=== PATIENT | male | born 1940 | race Caucasian/White ===

== ENCOUNTER 2016-07-02 10:21 | Emergency (ER) | payer BC ==
[~2016-07-02] VITALS: Ht 182.9 cm; Wt 93.0 kg
[2016-07-02 10:21] VITALS: BP 155/82; PULSE 86; RESP 22; TEMP 97.6; O2SAT 100
[~2016-07-02 10:21] MED LIST: CITA10TA71 PO; GLIP-195 PO; LOVA40TA75 PO; MEMA28CA PO; RANI150T8 PO; TAMS-11 PO
--- NOTE | 2016-07-02 10:21 | NUR ---
Placed in room 02. Placed on heavy equipment operator, blood pressure machine and pulse oximeter. To gown for exam. Side rails up. Report given to MYNOR Campos.
--- NOTE | 2016-07-02 10:21 | NUR ---
Pt report received from MYNOR Bautista. Pt c/o Left sided chest pain, non radiating since this AM. Pt states that he was laying down when C/P onset. Pt also c/o nausea.
[2016-07-02] MEDS ORDERED: ASPIRIN 325 MG TABLET PO ONE ×2 (10:30)
[2016-07-02] MEDS ORDERED: ONDANSETRON HCL 4 MG/2 ML VIAL IVP ONE (10:30)
[2016-07-02] MEDS ORDERED: MORPHINE SULFATE 10 MG/ML VIAL IVP ONE (10:30)
[2016-07-02] MEDS ORDERED: NITROGLYCERIN 0.4 MG TAB.SUBL SL ONE ×2 (10:30)
--- NOTE | 2016-07-02 10:44 | NUR ---
ER at bedside examining patient.
[2016-07-02 10:56] LABS: BASOPHILS # (AUTO) 0.1 K/uL (0.0-0.2); BASOPHILS % (AUTO) 1.4 % (0.0-2.0); EOSINOPHILS # (AUTO) 0.2 K/uL (0.0-0.4); EOSINOPHILS % (AUTO) 3.8 % (0.0-4.0); HEMATOCRIT 43.5 % (36-54); HEMOGLOBIN 14.4 g/dL (14.0-18.0); LYMPHOCYTES # (AUTO) 2.3 K/uL (1.0-5.5); LYMPHOCYTES % (AUTO) 38.9 % (20.5-51.5); MEAN CORPUSCULAR HEMOGLOBIN 30 pg (27-31); MEAN CORPUSCULAR HGB CONC 33 % (32-36); MEAN CORPUSCULAR VOLUME 92 fL (79.0-98.0); MONOCYTES # (AUTO) 0.4 K/uL (0.0-1.0); MONOCYTES % (AUTO) 6.2 % (1.7-9.3); NEUTROPHILS % (AUTO) 49.7 % (40.0-70.0); PLATELET COUNT (AUTO) 212 K/uL (130-430); RED BLOOD CELL COUNT(AUTO) 4.76 MIL/uL (4.2-6.2); RED CELL DISTRIBUTION WIDTH 12.6 % (9.0-15.0)
[2016-07-02 11:01] LABS: PROTHROMBIN TIME 11.1 SECS (9.5-12.5)
--- NOTE | 2016-07-02 11:08 | NUR ---
Lab at bedside to recollect blood s/p hemolyzation.
--- NOTE | 2016-07-02 11:09 | NUR ---
Pt states that he is pain free. VSS. No needs verbalized at this time.
[2016-07-02 11:24] LABS: ANION GAP 9 (5-15); CALCIUM 8.9 mg/dL (8.4-11.0); CHLORIDE 106 mmol/L (98-107); CREATININE 1.81 mg/dL (0.55-1.30); GLUCOSE 256 mg/dL (70-99); POTASSIUM 3.9 mmol/L (3.5-5.1); SODIUM SERUM 140 mmol/L (136-145); UREA NITROGEN, BLOOD 11 mg/dL (8-21)
[2016-07-02 11:37] LABS: ALANINE AMINOTRANSFERASE 29 U/L (12-78); ALBUMIN 3.6 g/dL (3.4-4.8); ASPARTATE AMINOTRANSFERASE 18 U/L (10-37); CREATINE KINASE MB 1.1 ng/mL (0-3.6); LIPASE 167 U/L (73-393); TOTAL BILIRUBIN 0.6 mg/dL (0.0-1.0); TOTAL PROTEIN, SERUM 6.6 g/dL (6.4-8.3)
[2016-07-02] MEDS ORDERED: NACL 0.9% 1,000 ML IV ONE (12:00)
--- NOTE | 2016-07-02 12:16 | NUR ---
Pt states "I feel fine. I want to go home." Dr. Bolanos notified of pt.'s request.
--- NOTE | 2016-07-02 13:34 | NUR ---
Patient does not wish to proceed with medical care recommended by DR CANTRELL. Patient given information related to possible complications, up to and including , which could occur as a result of leaving hospital at this time. Patient verbalizes understanding of risks involved leaving against medical advice. Patient has signed AMA form.
[2016-07-02 13:36] VITALS: BP 139/76; PULSE 86; RESP 15; TEMP 97.6; O2SAT 100
== END 2016-07-02 13:35 | disposition left against medical advice (07) ==
LOC: SED 10:21
DX: N17.9 Acute kidney failure, unspecified (principal); R07.2 Precordial pain; E11.9 Type 2 diabetes mellitus without complications; Z53.20 Procedure and treatment not carried out because of patient's decision for unspecified reasons
CPT/HCPCS: 36415; 71010; 80053; 82553; 83690; 84484; 85025; 85610; 85730; 93005; 96361; 96374; 99285; J2405; J7030

== ENCOUNTER 2018-04-05 09:55 | Emergency (ER) | payer BC ==
[~2018-04-05] VITALS: Ht 182.9 cm; Wt 90.7 kg
[~2018-04-05 09:55] MED LIST changes: +CITA10TA17 PO; -CITA10TA71 PO; -GLIP-195 PO; +GLIP-212 PO
[2018-04-05 10:11] VITALS: BP_SYST 142
[2018-04-05 11:50] VITALS: BP_SYST 114
== END 2018-04-05 11:50 | disposition home or self-care (01) ==
LOC: SED 09:55
DX: R33.9 Retention of urine, unspecified (principal); R03.0 Elevated blood-pressure reading, without diagnosis of hypertension; E11.9 Type 2 diabetes mellitus without complications; N40.0 Benign prostatic hyperplasia without lower urinary tract symptoms; Z79.899 Other long term (current) drug therapy
CPT/HCPCS: 99284

== ENCOUNTER 2018-04-05 18:45 | Emergency (ER) | payer BC ==
[~2018-04-05] VITALS: Ht 182.9 cm; Wt 90.7 kg
[2018-04-05 19:27] VITALS: BP_SYST 111
[2018-04-05] MEDS ORDERED: NACL 0.9% 1,000 ML IV ONE (20:45)
[2018-04-05 21:00] LABS: BASOPHILS % (AUTO) 0.6 % (0.0-2.0); EOSINOPHILS % (AUTO) 0.6 % (0.0-4.0); HEMOGLOBIN 12.5 g/dL (14.0-18.0); LYMPHOCYTES # (AUTO) 2.1 K/uL (1.0-5.5); LYMPHOCYTES % (AUTO) 26.3 % (20.5-51.5); MEAN CORPUSCULAR HEMOGLOBIN 30 pg (27-31); MEAN CORPUSCULAR HGB CONC 33 % (32-36); MEAN CORPUSCULAR VOLUME 90 fL (79.0-98.0); MONOCYTES % (AUTO) 12.2 % (1.7-9.3); NEUTROPHILS # (AUTO) 4.8 K/uL (1.8-7.7); NEUTROPHILS % (AUTO) 60.3 % (40.0-70.0); PLATELET COUNT (AUTO) 258 K/uL (130-430); RED BLOOD CELL COUNT(AUTO) 4.24 MIL/uL (4.2-6.2); RED CELL DISTRIBUTION WIDTH 13.3 % (9.0-15.0); WHITE BLOOD COUNT (AUTO) 7.9 K/uL (4.8-10.8)
[2018-04-05 21:14] LABS: BILIRUBIN,URINE NEGATIVE (NEGATIVE); BLOOD, URINE 3+ (NEGATIVE); CLARITY/URINE CLOUDY (CLEAR); COLOR,URINE YELLOW (YELLOW); GLUCOSE,URINE NEGATIVE (NEGATIVE); KETONES,URINE NEGATIVE (NEGATIVE); LEUKOCYTE ESTERASE ,URINE NEGATIVE (NEGATIVE); NITRITE, URINE NEGATIVE (NEGATIVE); PH,URINE 5.5 (5.0-8.0); PROTEIN URINE 2+ (NEGATIVE); UROBILINOGEN,URINE 0.2 (0.2-1.0)
[2018-04-05 21:22] LABS: ALANINE AMINOTRANSFERASE 32 U/L (12-78); ANION GAP 7 (5-15); ASPARTATE AMINOTRANSFERASE 24 U/L (10-37); CALCIUM 9.1 mg/dL (8.4-11.0); CHLORIDE 99 mmol/L (98-107); GLUCOSE 145 mg/dL (70-99); POTASSIUM 3.8 mmol/L (3.5-5.1); SODIUM SERUM 130 mmol/L (136-145); TOTAL BILIRUBIN 0.8 mg/dL (0.0-1.0); UREA NITROGEN, BLOOD 18 mg/dL (8-21)
[2018-04-05 21:24] LABS: RBC,URINE >100 /HPF (0-3); WBC,URINE 0-3 /HPF (0-3)
[2018-04-05 21:25] LABS: BACTERIA,URINE FEW /HPF (None Seen); FINE GRANULAR CASTS,URINE 0-10 /LPF (None Seen); MUCUS,URINE None Seen /LPF (None Seen)
[2018-04-05 22:36] VITALS: BP_SYST 124
== END 2018-04-05 22:36 | disposition home or self-care (01) ==
LOC: SED 18:45
DX: R33.9 Retention of urine, unspecified (principal); K59.00 Constipation, unspecified; R31.9 Hematuria, unspecified; E87.1 Hypo-osmolality and hyponatremia; F03.90 Unspecified dementia, unspecified severity, without behavioral disturbance, psychotic disturbance, mood disturbance, and anxiety; N40.0 Benign prostatic hyperplasia without lower urinary tract symptoms; E11.9 Type 2 diabetes mellitus without complications; Z79.899 Other long term (current) drug therapy
CPT/HCPCS: 36415; 74176; 80053; 81000; 83605; 85025; 87040; 87086; 93005; 99284; J7030

== ENCOUNTER 2018-04-12 10:10 | Emergency (ER) | payer BC ==
[~2018-04-12] VITALS: Ht 182.9 cm; Wt 90.7 kg
[~2018-04-12 10:10] MED LIST changes: -CITA10TA17 PO; -GLIP-212 PO; -RANI150T8 PO
[2018-04-12] MEDS ORDERED: NACL 0.9% 1,000 ML IV ONE ×3 (10:23→14:15)
[2018-04-12 10:25] VITALS: BP_SYST 102
[2018-04-12] MEDS ORDERED: KETOROLAC TROMETHAMINE 30 MG VIAL IVP ONE (10:30)
[2018-04-12] MEDS ORDERED: ASPIRIN 81 MG TAB.CHEW PO ONE (10:30)
[2018-04-12] MEDS ORDERED: ONDANSETRON HCL 4 MG/2 ML VIAL IVP ONE (10:45)
[2018-04-12 11:34] LABS: BASOPHILS % (AUTO) 0.2 % (0.0-2.0); EOSINOPHILS % (AUTO) 0.1 % (0.0-4.0); HEMATOCRIT 38.3 % (36-54); HEMOGLOBIN 12.9 g/dL (14.0-18.0); LYMPHOCYTES # (AUTO) 0.9 K/uL (1.0-5.5); MEAN CORPUSCULAR HEMOGLOBIN 30 pg (27-31); MEAN CORPUSCULAR HGB CONC 34 % (32-36); MEAN CORPUSCULAR VOLUME 89 fL (79.0-98.0); MONOCYTES # (AUTO) 0.6 K/uL (0.0-1.0); MONOCYTES % (AUTO) 5.9 % (1.7-9.3); NEUTROPHILS # (AUTO) 8.7 K/uL (1.8-7.7); NEUTROPHILS % (AUTO) 84.8 % (40.0-70.0); PLATELET COUNT (AUTO) 330 K/uL (130-430); RED CELL DISTRIBUTION WIDTH 12.9 % (9.0-15.0); WHITE BLOOD COUNT (AUTO) 10.2 K/uL (4.8-10.8)
[2018-04-12] MEDS ORDERED: PANTOPRAZOLE SODIUM 40 MG/VIAL (PROTONIX) IVP ONE (11:45)
[2018-04-12 11:54] LABS: ANION GAP 11 (5-15); CALCIUM 8.4 mg/dL (8.4-11.0); CHLORIDE 95 mmol/L (98-107); CREATININE 1.57 mg/dL (0.55-1.30); GLUCOSE 196 mg/dL (70-99); POTASSIUM 3.3 mmol/L (3.5-5.1); SODIUM SERUM 134 mmol/L (136-145); UREA NITROGEN, BLOOD 27 mg/dL (8-21)
[2018-04-12 12:03] LABS: ALANINE AMINOTRANSFERASE 22 U/L (12-78); ALBUMIN 2.8 g/dL (3.4-4.8); ASPARTATE AMINOTRANSFERASE 18 U/L (10-37)
[2018-04-12 12:56] LABS: BILIRUBIN,URINE NEGATIVE (NEGATIVE); BLOOD, URINE 3+ (NEGATIVE); CLARITY/URINE HAZY (CLEAR); COLOR,URINE YELLOW (YELLOW); GLUCOSE,URINE NEGATIVE (NEGATIVE); KETONES,URINE TRACE (NEGATIVE); LEUKOCYTE ESTERASE ,URINE NEGATIVE (NEGATIVE); NITRITE, URINE NEGATIVE (NEGATIVE); PH,URINE 5.5 (5.0-8.0); PROTEIN URINE 1+ (NEGATIVE); UROBILINOGEN,URINE 0.2 (0.2-1.0)
[2018-04-12 13:16] LABS: BACTERIA,URINE MODERATE /HPF (None Seen); MUCUS,URINE 1+ /LPF (None Seen); RBC,URINE 20-50 /HPF (0-3); URINE AMORPHOUS URATE 1+ /HPF (None Seen); WBC,URINE 0-3 /HPF (0-3)
[2018-04-12 16:13] VITALS: BP_SYST 110
== END 2018-04-12 16:13 | disposition home or self-care (01) ==
LOC: SED 10:10
DX: K21.9 Gastro-esophageal reflux disease without esophagitis (principal); F03.90 Unspecified dementia, unspecified severity, without behavioral disturbance, psychotic disturbance, mood disturbance, and anxiety; N40.0 Benign prostatic hyperplasia without lower urinary tract symptoms; E11.9 Type 2 diabetes mellitus without complications; Z79.899 Other long term (current) drug therapy
CPT/HCPCS: 36415; 71045; 74176; 80053; 81000; 83605; 84484; 85025; 87040; 87086; 93005; 96361; 96374; 96375; 99284; C9113; J1885; J2405; J7030

== ENCOUNTER 2018-04-18 11:52 | Emergency (ER) | payer BC ==
[~2018-04-18] VITALS: Ht 182.9 cm; Wt 90.7 kg
[2018-04-18 11:53] VITALS: BP_SYST 141
--- NOTE | 2018-04-18 11:55 | NUR ---
BROUGHT BACK TO BED #4 VIA WHEELCHAIR AND PLACED IN BED. TRIAGED. REPORT GIVEN TO NING
--- NOTE | 2018-04-18 11:57 | NUR ---
Pt brought by , ambulatory, A&Ox4 , pt presents to ER with pain and Redness on R big toe, skin pink and warm, cap refill <3, VS WNL, respirations even and unlabored, pt has urinary catheter replaced 2 weeks ago. will change catheter. will continue to [facility].
[2018-04-18] MEDS ORDERED: KETOROLAC TROMETHAMINE 30 MG VIAL IVP ONE (12:00)
[2018-04-18] MEDS ORDERED: NACL 0.9% 1,000 ML IV ONE (12:00)
[2018-04-18] MEDS ORDERED: ONDANSETRON HCL 4 MG/2 ML VIAL IVP ONE (12:00)
--- NOTE | 2018-04-18 12:00 | NUR ---
Dr Chaparro at bedside examining patient
[2018-04-18 12:46] LABS: BASOPHILS % (AUTO) 0.8 % (0.0-2.0); EOSINOPHILS # (AUTO) 0.1 K/uL (0.0-0.4); EOSINOPHILS % (AUTO) 3.4 % (0.0-4.0); HEMATOCRIT 30.8 % (36-54); HEMOGLOBIN 10.6 g/dL (14.0-18.0); LYMPHOCYTES # (AUTO) 1.1 K/uL (1.0-5.5); LYMPHOCYTES % (AUTO) 26.2 % (20.5-51.5); MEAN CORPUSCULAR HEMOGLOBIN 31 pg (27-31); MEAN CORPUSCULAR HGB CONC 34 % (32-36); MEAN CORPUSCULAR VOLUME 90 fL (79.0-98.0); MONOCYTES # (AUTO) 0.4 K/uL (0.0-1.0); MONOCYTES % (AUTO) 9.2 % (1.7-9.3); NEUTROPHILS # (AUTO) 2.5 K/uL (1.8-7.7); NEUTROPHILS % (AUTO) 60.4 % (40.0-70.0); PLATELET COUNT (AUTO) 324 K/uL (130-430); RED BLOOD CELL COUNT(AUTO) 3.44 MIL/uL (4.2-6.2); RED CELL DISTRIBUTION WIDTH 12.9 % (9.0-15.0); WHITE BLOOD COUNT (AUTO) 4.1 K/uL (4.8-10.8)
--- NOTE | 2018-04-18 12:54 | NUR ---
16# FR Youssef catheter with use of sterile technique. Immediate return of 150 cc urine noted. Bedside drainage bag placed below level of bladder. Urine sample collected and sent to lab. Pt tolerated procedure . Patient arrived with youssef in place, changed due to standard of practice prior to admission. Patient unable to toilet self.
--- NOTE | 2018-04-18 13:00 | NUR ---
Pt on stable condition , VS WNL.
[2018-04-18 13:02] LABS: BILIRUBIN,URINE NEGATIVE (NEGATIVE); BLOOD, URINE 3+ (NEGATIVE); CLARITY/URINE SL HAZY (CLEAR); COLOR,URINE YELLOW (YELLOW); GLUCOSE,URINE NEGATIVE (NEGATIVE); KETONES,URINE NEGATIVE (NEGATIVE); LEUKOCYTE ESTERASE ,URINE 2+ (NEGATIVE); NITRITE, URINE NEGATIVE (NEGATIVE); PROTEIN URINE NEGATIVE (NEGATIVE); UROBILINOGEN,URINE 0.2 (0.2-1.0)
[2018-04-18 13:08] LABS: INR 1.1 (0.80-1.20); PROTHROMBIN TIME 10.9 SECS (9.5-12.5)
[2018-04-18 13:10] LABS: BACTERIA,URINE MODERATE /HPF (None Seen); MUCUS,URINE 1+ /LPF (None Seen)
[2018-04-18 13:14] LABS: ANION GAP 11 (5-15); CALCIUM 8.5 mg/dL (8.4-11.0); CHLORIDE 98 mmol/L (98-107); CREATININE 1.39 mg/dL (0.55-1.30); GLUCOSE 176 mg/dL (70-99); POTASSIUM 3.5 mmol/L (3.5-5.1); SODIUM SERUM 132 mmol/L (136-145); UREA NITROGEN, BLOOD 9 mg/dL (8-21)
[2018-04-18 13:20] LABS: ALANINE AMINOTRANSFERASE 25 U/L (12-78); ALBUMIN 2.7 g/dL (3.4-4.8); AMYLASE 90 U/L (0-100); ASPARTATE AMINOTRANSFERASE 20 U/L (10-37); LIPASE 251 U/L (73-393); TOTAL BILIRUBIN 0.6 mg/dL (0.0-1.0); URIC ACID 4.8 mg/dL (2.4-7.0)
[2018-04-18 14:13] VITALS: BP_SYST 142
--- NOTE | 2018-04-18 14:13 | NUR ---
Patient given written and verbal discharge instructions and verbalizes understanding. ER MD discussed with patient the results and treatment provided. Patient in stable condition. ID arm band removed. IV catheter removed intact and dressing applied, no active bleeding. Rx of Keflex and Colchicine given. Patient educated on pain management and to follow up with PMD. Pain Scale 3/10 tolerable for pt. Opportunity for questions provided and answered. Medication side effect fact sheet provided.
== END 2018-04-18 14:13 | disposition home or self-care (01) ==
LOC: SED 11:52
DX: M10.071 Idiopathic gout, right ankle and foot (principal); N39.0 Urinary tract infection, site not specified; E11.9 Type 2 diabetes mellitus without complications; F03.90 Unspecified dementia, unspecified severity, without behavioral disturbance, psychotic disturbance, mood disturbance, and anxiety; R03.0 Elevated blood-pressure reading, without diagnosis of hypertension; Z79.899 Other long term (current) drug therapy
CPT/HCPCS: 36415; 51702; 71045; 80053; 81000; 82150; 82550; 83605; 83690; 84484; 84550; 85025; 85610; 85730; 87086; 87186; 93005; 96374; 96375; 99284; J1885; J2405; J7030

== ENCOUNTER 2018-04-26 11:36 | Emergency (ER) | payer BC ==
[~2018-04-26] VITALS: Ht 182.9 cm; Wt 90.7 kg
[2018-04-26 11:52] VITALS: BP_SYST 123
[2018-04-26 12:09] LABS: BASOPHILS % (AUTO) 0.3 % (0.0-2.0); HEMATOCRIT 34.9 % (36-54); LYMPHOCYTES # (AUTO) 3.3 K/uL (1.0-5.5); LYMPHOCYTES % (AUTO) 44.2 % (20.5-51.5); MEAN CORPUSCULAR HEMOGLOBIN 30 pg (27-31); MEAN CORPUSCULAR HGB CONC 35 % (32-36); MEAN CORPUSCULAR VOLUME 87 fL (79.0-98.0); MONOCYTES # (AUTO) 0.7 K/uL (0.0-1.0); MONOCYTES % (AUTO) 9.1 % (1.7-9.3); NEUTROPHILS # (AUTO) 3.6 K/uL (1.8-7.7); NEUTROPHILS % (AUTO) 46.4 % (40.0-70.0); PLATELET COUNT (AUTO) 253 K/uL (130-430); RED BLOOD CELL COUNT(AUTO) 4.02 MIL/uL (4.2-6.2); RED CELL DISTRIBUTION WIDTH 13.4 % (9.0-15.0); WHITE BLOOD COUNT (AUTO) 7.6 K/uL (4.8-10.8)
[2018-04-26 12:24] LABS: ANION GAP 11 (5-15); CHLORIDE 100 mmol/L (98-107); GLUCOSE 168 mg/dL (70-99); POTASSIUM 3.8 mmol/L (3.5-5.1); SODIUM SERUM 135 mmol/L (136-145); UREA NITROGEN, BLOOD 11 mg/dL (8-21)
[2018-04-26 12:29] LABS: ALANINE AMINOTRANSFERASE 47 U/L (12-78); ALBUMIN 2.9 g/dL (3.4-4.8); ASPARTATE AMINOTRANSFERASE 47 U/L (10-37); LIPASE 391 U/L (73-393); TOTAL BILIRUBIN 0.7 mg/dL (0.0-1.0)
[2018-04-26 12:36] LABS: INR 1.1 (0.80-1.20); PROTHROMBIN TIME 11.3 SECS (9.5-12.5)
[2018-04-26] MEDS: NACL 0.9% 1,000 ML IV ONE (13:03)
[2018-04-26 13:44] LABS: BILIRUBIN,URINE 2+ (NEGATIVE); BLOOD, URINE 3+ (NEGATIVE); CLARITY/URINE HAZY (CLEAR); COLOR,URINE AMBER (YELLOW); GLUCOSE,URINE NEGATIVE (NEGATIVE); KETONES,URINE TRACE (NEGATIVE); LEUKOCYTE ESTERASE ,URINE TRACE (NEGATIVE); NITRITE, URINE NEGATIVE (NEGATIVE); PROTEIN URINE 3+ (NEGATIVE)
[2018-04-26] MEDS ORDERED: NS 500 ML IV ONE (13:45)
[2018-04-26 14:12] LABS: BACTERIA,URINE FEW /HPF (None Seen); MUCUS,URINE 1+ /LPF (None Seen); RBC,URINE 20-50 /HPF (0-3)
[2018-04-26 15:39] VITALS: BP_SYST 118
== END 2018-04-26 15:39 | disposition home or self-care (01) ==
LOC: SED 11:36
DX: N40.0 Benign prostatic hyperplasia without lower urinary tract symptoms (principal); R31.9 Hematuria, unspecified; E11.9 Type 2 diabetes mellitus without complications; F03.90 Unspecified dementia, unspecified severity, without behavioral disturbance, psychotic disturbance, mood disturbance, and anxiety; M10.9 Gout, unspecified; Z79.899 Other long term (current) drug therapy
CPT/HCPCS: 36415; 71045; 80053; 81000; 82550; 83690; 84484; 85025; 85610; 85730; 87086; 93005; 96360; 99284; J7030; 99283

== ENCOUNTER 2019-06-14 15:23 | Emergency (ER) | payer BC ==
[~2019-06-14] VITALS: Ht 182.9 cm; Wt 86.2 kg
[2019-06-14 15:41] VITALS: BP_SYST 164
[2019-06-14] MEDS ORDERED: cloNIDine HCL 0.1 MG TABLET PO ONE (16:00)
[2019-06-14] MEDS ORDERED: ASPIRIN 81 MG TAB.CHEW PO ONE (16:00)
[2019-06-14 16:53] LABS: BASOPHILS % (AUTO) 0.3 % (0.0-2.0); EOSINOPHILS % (AUTO) 0.1 % (0.0-4.0); HEMATOCRIT 41.2 % (36-54); HEMOGLOBIN 14.1 g/dL (14.0-18.0); LYMPHOCYTES # (AUTO) 2.3 K/uL (1.0-5.5); LYMPHOCYTES % (AUTO) 34.8 % (20.5-51.5); MEAN CORPUSCULAR HEMOGLOBIN 31 pg (27-31); MEAN CORPUSCULAR HGB CONC 34 % (32-36); MEAN CORPUSCULAR VOLUME 91 fL (79.0-98.0); MONOCYTES # (AUTO) 0.5 K/uL (0.0-1.0); MONOCYTES % (AUTO) 7.2 % (1.7-9.3); NEUTROPHILS # (AUTO) 3.8 K/uL (1.8-7.7); NEUTROPHILS % (AUTO) 57.6 % (40.0-70.0); PLATELET COUNT (AUTO) 193 K/uL (130-430); RED BLOOD CELL COUNT(AUTO) 4.54 MIL/uL (4.2-6.2); RED CELL DISTRIBUTION WIDTH 14.2 % (9.0-15.0); WHITE BLOOD COUNT (AUTO) 6.6 K/uL (4.8-10.8)
[2019-06-14 18:20] LABS: ANION GAP 13 (5-15); CALCIUM 9.1 mg/dL (8.4-11.0); CHLORIDE 103 mmol/L (98-107); GLUCOSE 161 mg/dL (70-99); POTASSIUM 3.8 mmol/L (3.5-5.1); SODIUM SERUM 139 mmol/L (136-145); UREA NITROGEN, BLOOD 10 mg/dL (8-21)
[2019-06-14 18:27] LABS: ALANINE AMINOTRANSFERASE 24 U/L (12-78); ASPARTATE AMINOTRANSFERASE 21 U/L (10-37); TOTAL BILIRUBIN 0.8 mg/dL (0.0-1.0)
[2019-06-14 19:00] VITALS: BP_SYST 124
== END 2019-06-14 19:00 | disposition home or self-care (01) ==
LOC: SED 15:23
DX: R07.9 Chest pain, unspecified (principal); E11.9 Type 2 diabetes mellitus without complications; Z79.899 Other long term (current) drug therapy
CPT/HCPCS: 36415; 71045; 80053; 82550-TC; 83880; 84484; 85025; 93005; 99285

== ENCOUNTER 2019-09-03 17:15 | Inpatient (IN) | payer BC, SELFPAY ==
[~2019-09-03] VITALS: Ht 185.4 cm; Wt 85.3 kg
--- NOTE | 2019-09-03 17:15 | NUR ---
PATIENT TO ER #8 ISOLATION, NEGATIVE PRESSURE, AGENT, SAO2, ABP; IV OUT FROM FIELD, #18 PLACED RIGHT HAND
[2019-09-03] MEDS ORDERED: NACL 0.9% 1,000 ML IV ONE (17:32)
[2019-09-03] MEDS ORDERED: FLAVONOID PO (17:41)
[2019-09-03] MEDS ORDERED: LORA0.5T PO (17:42)
[2019-09-03] MEDS ORDERED: cefTRIAXone 1 GM IVPB PREMIX 50 ML IV ONE (17:45)
[2019-09-03] MEDS ORDERED: AZITHROMYCIN 500 MG in NS 250 ML IV ONE (17:45)
[2019-09-03] MEDS ORDERED: ACETAMINOPHEN 500 MG TABLET PO ONE (17:45)
--- NOTE | 2019-09-03 17:48 | NUR ---
PATIENT PRESENTS TO THE ER WITH TWO DAY HX OF ELEVATED TEMPERATURE AND COUGH; INCREASED CONFUSION PER ; NO TRAUMA, NO OTHER REMARKABLE S/S
[2019-09-03 17:49] VITALS: BP_SYST 134
--- NOTE | 2019-09-03 18:00 | NUR ---
REASSESSMENT; PATIENT IS SEDATE AND UNCHANGED; MRSA, COVID, A/B FLU SWABS COMPLETE; DISPOSITION PENDING
[2019-09-03 18:07] LABS: HEMATOCRIT 34.6 % (36-54); HEMOGLOBIN 11.9 g/dL (14.0-18.0); MEAN CORPUSCULAR HEMOGLOBIN 31 pg (27-31); MEAN CORPUSCULAR HGB CONC 34 % (32-36); MEAN CORPUSCULAR VOLUME 91 fL (79.0-98.0); PLATELET COUNT (AUTO) 133 K/uL (130-430); RED CELL DISTRIBUTION WIDTH 13.3 % (9.0-15.0); WHITE BLOOD COUNT (AUTO) 2.9 K/uL (4.8-10.8)
[2019-09-03 18:14] LABS: ANION GAP 17 (5-15); CALCIUM 8.3 mg/dL (8.4-11.0); CHLORIDE 99 mmol/L (98-107); GLUCOSE 188 mg/dL (70-99); POTASSIUM 3.7 mmol/L (3.5-5.1); SODIUM SERUM 132 mmol/L (136-145); UREA NITROGEN, BLOOD 13 mg/dL (8-21)
[2019-09-03 18:18] LABS: PROTHROMBIN TIME 10.4 SECS (9.5-12.5)
[2019-09-03 18:19] LABS: ALANINE AMINOTRANSFERASE 20 U/L (12-78); AMYLASE 38 U/L (0-100); ASPARTATE AMINOTRANSFERASE 20 U/L (10-37); LIPASE 56 U/L (73-393); TOTAL BILIRUBIN 1.3 mg/dL (0.0-1.0)
[2019-09-03 18:20] LABS: ALCOHOL, BLOOD < 3 mg/dL (<10)
[2019-09-03] MEDS ORDERED: AZITHROMYCIN 500 MG/VIAL (ZITHROMAX) IV ONE ×2 (18:22→18:48)
[2019-09-03 18:44] LABS: BAND % (MANUAL) 9 % (0-6); LYMPHOCYTES % (MANUAL) 20 % (20-46)
[2019-09-03 18:45] LABS: BASOPHILS % (MANUAL) 0 % (0-2); EOSINOPHILS % (MANUAL) 0 % (0-7); MONOCYTES % (MANUAL) 2 % (0-11)
[2019-09-03] MEDS ORDERED: NACL 0.9% 2,000 ML IV ONE (18:45)
--- NOTE | 2019-09-03 18:46 | NUR ---
REASSESSMENT; PATIENT IS MORE ALERT WITH LOWER TEMPERATURE; URINAL IN PLACE FOR UX; DISPOSITION PENDING
[2019-09-03] MEDS ORDERED: ALBUTEROL SULFATE 0.083% 2.5 MG/3 ML VIAL.NEB INH ONE (19:00)
[2019-09-03] MEDS ORDERED: IPRATROPIUM BROM 0.5 MG/2.5 ML VIAL.NEB (ATROVENT) INH ONE (19:00)
--- NOTE | 2019-09-03 19:04 | NUR ---
Patient will be admitted to care of DR ALEXANDER. Admitted to TELEMETRY unit. BED PENDING Belongings list completed. Complete and up to date summary report printed. SBAR report to be given at bedside with opportunity for questions.
--- NOTE | 2019-09-03 19:12 | NUR ---
PHONED AND ADVISED WITH PATIENT'S PERMISSION
--- NOTE | 2019-09-03 19:30 | NUR ---
KELSIE TO ASSUEM CARE, PT CALM, ALERT, RESP UNLABORED, ST ON MONITOR 107 SAO2 96% ON 2L NC, COMMUNICATES CLEARLY IN FULL COMPLETE SENTENCES. HX OF DEMENTIA.
--- NOTE | 2019-09-03 20:30 | NUR ---
Patient will be admitted to care of SANDRA. Admitted to TELE unit. Will go to room 121B. Belongings list completed. Complete and up to date summary report printed. SBAR report to be given at bedside with opportunity for questions.
--- NOTE | 2019-09-03 20:34 | NUR ---
ADMIT NOTE Received pt from ER to the floor with a diagnosis of PNA RULE OUT COVID. Admission process initiated. patient oriented to pain management, safety and call light-teach back done.
[2019-09-03 21:00] VITALS: BP_SYST 91
--- NOTE | 2019-09-03 21:00 | NUR ---
initial notes: pt is awake, alert, oriented x 3. complain of generalized weakness. no pain. no sob. not distress. vital sign stable. sinus rhythm on monitor. sating 95% at room air. pt has iv fluid bolus from ER infusing to right hand gauge 18. no skin breakdown. explain to pt plan of care and why he is on isolation.orient to room, call light and safety. pt verbalized understanding. needs attended. call light in reach. low bed position. side rails up x 2. [facility].
[2019-09-03] MEDS ORDERED: ALBUTEROL SULFATE 0.083% 2.5 MG/3 ML VIAL.NEB INH PRN (23:15)
[2019-09-03] MEDS ORDERED: LORazepam 1 MG TABLET PO PRN (23:45)
--- NOTE | 2019-09-04 | NUR ---
awake,a lert, no pain, no sob, stable vital sign. covid isolation. needs attended. will monitor.
[2019-09-04] MEDS: NACL 0.9% 1,000 ML IV SCH ×3 (00:18→21:00)
[2019-09-04 00:30] VITALS: BP_SYST 90
--- NOTE | 2019-09-04 00:42 | NUR ---
CONSULT: CONSULT CALLED FOR DR. CLARK I SPOKE WITH JOSE FIELDS MACHINE I ENGRAVER FOR DR. NEWMAN REASON FOR CONSULT: FEVER REQUESTING CONSULT: DR. ALEXANDER SEED SORTER PHONE NUMBER: [phone]
--- NOTE | 2019-09-04 01:45 | NUR ---
assisted to bathroom, unsteady gait, back to bed. needs attended. will monitor.
--- NOTE | 2019-09-04 04:00 | NUR ---
pt is resting, comfortable. no pain, not distress. isolation for covid. will monitor.
--- NOTE | 2019-09-04 04:13 | NUR ---
PAGED: PAGED DR. MOYA I SPOKE WITH JOSE JIMENEZ
--- NOTE | 2019-09-04 04:34 | NUR ---
DR. MOYA CALLED BACK
--- NOTE | 2019-09-04 05:21 | NUR ---
PAGED I PAGED DR. FIELDS SHE CALLED US BACK SHE IS AWARE OF THE CONSULT FOR MR MEI
--- NOTE | 2019-09-04 06:20 | NUR ---
pt is sleeping, no sign of pain, comfortable. wakes up when blood sugar check-248, cover per sliding scale. stable on monitor. maintained on covid isolation. safety precaution in place. call light in reach. will monitor.
[2019-09-04] MEDS: INSULIN REGULAR, HUMAN 100 UNITS/ML, 10 ML VIAL (humuLIN R) SUBCUT PRN ×2 (06:42→12:45)
[2019-09-04 07:11] LABS: HEMATOCRIT 30.5 % (36-54); HEMOGLOBIN 10.5 g/dL (14.0-18.0); MEAN CORPUSCULAR HEMOGLOBIN 32 pg (27-31); MEAN CORPUSCULAR HGB CONC 35 % (32-36); MEAN CORPUSCULAR VOLUME 92 fL (79.0-98.0); PLATELET COUNT (AUTO) 126 K/uL (130-430); RED BLOOD CELL COUNT(AUTO) 3.31 MIL/uL (4.2-6.2); RED CELL DISTRIBUTION WIDTH 13.7 % (9.0-15.0)
--- NOTE | 2019-09-04 07:15 | NUR ---
closing: pt is sleeping, no sign of pain,no sob. stable on monitor.call light in reach. safety precaution in place. covid isolation.sbar report given to virgilio ordoñez..
[2019-09-04 07:24] LABS: ALANINE AMINOTRANSFERASE 23 U/L (12-78); ALBUMIN 2.4 g/dL (3.4-4.8); ANION GAP 10 (5-15); CALCIUM 7.5 mg/dL (8.4-11.0); CHLORIDE 103 mmol/L (98-107); CREATININE 1.76 mg/dL (0.55-1.30); GLUCOSE 273 mg/dL (70-99); POTASSIUM 4.3 mmol/L (3.5-5.1); SODIUM SERUM 136 mmol/L (136-145); TOTAL BILIRUBIN 0.8 mg/dL (0.0-1.0); UREA NITROGEN, BLOOD 13 mg/dL (8-21)
[2019-09-04 07:31] LABS: ASPARTATE AMINOTRANSFERASE 31 U/L (10-37)
--- NOTE | 2019-09-04 08:00 | NUR ---
Inital notes: Patient is awake and alert, his breakfast tray was delivered this morning. His IV site is patents and running NS. Patient is not showing any signs of distress on 2 L of oxygen NC. He is in isolation due to covid r/o, labs still pending - will follow. Got report from morning nurse. Bed is low, locked, 2 side rails up and call light is within reach. Cade LOWE
[2019-09-04 08:05] LABS: BILIRUBIN,URINE NEGATIVE (NEGATIVE); CLARITY/URINE CLEAR (CLEAR); COLOR,URINE YELLOW (YELLOW); GLUCOSE,URINE TRACE (NEGATIVE); KETONES,URINE NEGATIVE (NEGATIVE); LEUKOCYTE ESTERASE ,URINE 2+ (NEGATIVE); NITRITE, URINE POSITIVE (NEGATIVE); PROTEIN URINE NEGATIVE (NEGATIVE)
[2019-09-04 08:18] LABS: BARBITURATE, URINE NEGATIVE (NEG <=200); BENZODIAZEPINE, URINE NEGATIVE (NEG <=150); CANNABINOID, URINE NEGATIVE (NEG <=50); COCAINE, URINE NEGATIVE (NEG <=150); METHAMPHETAMINES SCREEN,URINE NEGATIVE (NEG <=500); OPIATE, URINE NEGATIVE (NEG <=100); PHENCYCLIDINE SCREEN,URINE NEGATIVE (NEG <=25); UR TRICYCLIC ANTIDEPRESSANTS NEGATIVE (NEG <=300); URINE AMPHETAMINE NEGATIVE (NEG <=500); URINE METHADONE NEGATIVE (NEG <=200); URINE OXYCODONE SCREEN NEGATIVE (NEG <=100); URINE PROPOXYPHENE SCREEN NEGATIVE (NEG <=300)
[2019-09-04 08:22] LABS: BLOOD, URINE TRACE (NEGATIVE)
[2019-09-04 08:26] LABS: BACTERIA,URINE RARE /HPF (None Seen)
[2019-09-04] MEDS ORDERED: LORAZEPAM PO SCH (09:00)
[2019-09-04 09:46] LABS: BAND % (MANUAL) 22 % (0-6); BASOPHILS % (MANUAL) 0 % (0-2); EOSINOPHILS % (MANUAL) 0 % (0-7); LYMPHOCYTES % (MANUAL) 3 % (20-46); MONOCYTES % (MANUAL) 6 % (0-11)
--- NOTE | 2019-09-04 10:02 | NUR ---
Rounded on patient, doing well, asked to call his to bring phone to him at hospital. Bed is low, locked, 2 side rails up and call light is within reach. Cade LOWE
--- NOTE | 2019-09-04 12:07 | NUR ---
Meal tray was delivered and cluster care was provided. Patient presents no new complaints. Bed is low, locked, 2 side rails up and call light is within reach. Cade LOWE
[2019-09-04] MEDS: LEVOFLOXACIN 500 MG/D5W 100 ML IV SCH (12:29)
[2019-09-04] MEDS: PIPERACILLIN/TAZO 3.375/DEX-IS 50 ML IV SCH ×3 (12:46→23:59)
[2019-09-04 12:58] VITALS: BP_SYST 117
--- NOTE | 2019-09-04 14:12 | NUR ---
Rounded and started new IV on patient as it got dislodged, his new IV is on the OSEI, #22g, running NS. Patient presents no new complaints. Bed is low, locked, 2 side rails up and call light is within reach. Cade LOWE
--- NOTE | 2019-09-04 16:12 | NUR ---
New IV AB were hung and meal tray passed, he has no new complaints. Bed is low, locked, 2 side rails up and call light within reach. Cade LOWE
[2019-09-04 17:08] VITALS: BP_SYST 138
--- NOTE | 2019-09-04 18:19 | NUR ---
Closing notes: Patient is awake, alert and oriented, resting in bed. No signs of distress or nonlabored breathing on 2L NC. Denies pain at this time. IV on right arm is patent and running NS, SCD's are on. Cluster care was provided throughout shift. Covid test is still pending, he will remain in isolation for the time being. Report will be given to night auditor nurse. Bed is low, locked, 2 side rails up and call light is within reach. Cade LOWE
[2019-09-04 19:00] VITALS: BP_SYST 124
--- NOTE | 2019-09-04 19:15 | NUR ---
change of shift.pt.presents quiescent affect;calm,resting.pt.presents iv access intact;patent iv fluids infusing. isolation status;droplet;r/o covid 19 precautions;pt.capable to reposition self.pt.capable to ambulate.pt.utilizing the urinal;option.call light/telephone w/in reach of the pt.
[2019-09-04 20:00] VITALS: BP_SYST 124
--- NOTE | 2019-09-04 20:00 | NUR ---
pt.assessed.v/s assessed values w/in normal limits.no c/o pain,nausea.i have apprised the pt.that snacks/beverages are available w/in the shift.pt.presents no requests@this hour.pt.capable to ambulate:will utilize the urinal;w/in reach of the pt.general status stable.respiratory status stable:unlabored.02-sat%=96%.call light/telephone placed w/in reach of the pt.
[2019-09-04] MEDS ORDERED: cefTRIAXone 1 GM IVPB PREMIX 50 ML IV SCH (21:00)
[2019-09-04] MEDS ORDERED: AZITHROMYCIN 500 MG in NS 250 ML IV SCH (21:00)
--- NOTE | 2019-09-04 21:00 | NUR ---
2100p medications administered.pt.capable to ingest the medications whole w/out difficulty.no requests posited @this hour.
[2019-09-04] MEDS: TAMSULOSIN HCL 0.4 MG CAP PO SCH (21:36)
--- NOTE | 2019-09-04 22:00 | NUR ---
pt.assessed.pt.assisted to the restroom;gait assessed;slight unsteady.pt.assessed gait return to bed.i have assisted the pt's change of gown.pt.had c/o cold.pt.provided blankets;warmed.no additional requests posited@this hour.iv access intact;patent iv fluid infusing.general status stable.respiratory status stable;unlabored:02-sat%=96%.no c/o pain,nausea.call light/telephone placed w/in reach of the pt.
--- NOTE | 2019-09-04 22:30 | NUR ---
pt.assessed.pt.presents change in affect status;restless;anxious.i have administered ativan;0.5mg po. to re-assess the pt's affect status.medication efficacy.
[2019-09-05] VITALS: BP_SYST 133
--- NOTE | 2019-09-05 | NUR ---
pt.assessed.v/s assessed;values w/in normal limits.no c/o pain,nausea.pt.had requested water.i have provided the water.i have administered the zosyn;abx;ivpb midnight dose.i have assessed the blood glucose;:value;136mg/dl.i have apprised the pt.of the blood glucose value.general status stable.respiratory status stable;o2-sat%=98%pt.capable to reposition self.pt.had utilized the urinal;i have attended to the urinal:measured/cleaned placed w/in reach of the pt/call light/telephone placed w/in reach of the pt.
--- NOTE | 2019-09-05 02:00 | NUR ---
pt.assessed.pt.presents quiescent affect;calm,resting.no c/o pain,nausea.no requests posited@this hour.iv access intact;patent iv fluids infusing.pt.capable to reposition self.urinal inspected/clean.general status stable.respiratory status stable;unlabored;02-sat%=96%.call light/telephone placed w/in reach of the pt.
--- NOTE | 2019-09-05 04:00 | NUR ---
pt.assessed.pt.presents quiescent affect;calm,resting.no c/o pain,nausea.no requests posited@this hour. i have inspected the urinal;clean.w/in reach of the pt.general status stable.respiratory status stable; unlabored:o2-sat%=96%.call light/telephone placed w/in reach of the pt.
[2019-09-05] MEDS: NACL 0.9% 1,000 ML IV SCH ×3 (05:05→20:57)
[2019-09-05] MEDS: PIPERACILLIN/TAZO 3.375/DEX-IS 50 ML IV SCH (05:48)
--- NOTE | 2019-09-05 06:00 | NUR ---
pt.ASSESSED.PT.AFFECT CHANGED:PT.PRESENTED AGGRESSIVE AFFECT.I ATTEMPTED TO ASSESS THE BLOOD GLUCOSE PT./STATED LEAVE ME ALONE.I ATTEMPTED SEVERAL TIMES EXPLANATION RE;BLOOD GLUCOSE IMPORTANCE;PT.PULLED THE BED COVERS OVER HIMSELF.I ATTEMPTED TO RE-ESTABLISH THE IV ACCESS PT.WOULD NOT ALLOW THE ATTEMPT.
--- NOTE | 2019-09-05 07:09 | NUR ---
Nutrition Update Robel Scale 18 noted. Pt admitted for Pneumonia, Rule out COVID-19 Diet: [facility] BMI: 24.8 kg/m2 RD to follow per nutrition care standards.
--- NOTE | 2019-09-05 07:30 | NUR ---
OPENING NOTES: RECEIVED PATIENT FROM CHICKEN RAISER NURSE. PATIENT IS AWAKE AND ALERT x 1 WALKING AROUND THE ROOM. PATIENT ATTEMPTED TO WALK OUT OF THE ROOM INTO THE HALLWAY STATING HE IS CONFUSED. PATIENT WAS REDIRECTED BACK TO HIS ROOM. PATIENT IS TOLERATING OXYGEN ON ROOM AIR WITH NO SIGNS OF DISTRESS OR SHORTNESS OF BREATH NOTED. NO IV SITE IS AVAILABLE DUE TO PATIENT NOT LETTING CHICKEN RAISER ATTEMPT TO INSERT A NEW ONE. WILL ATTEMPT LATER. PATIENT IN STABLE CONDITION. SAFETY, FALL, ASPIRATION, AND CONTACT PRECAUTIONS ARE IN PLACE. BED LOCKED IN LOWEST POSITION WITH CALL LIGHT IN REACH. WILL CONTINUE TO MONITOR PATIENT FOR ANY CHANGES.
[2019-09-05 08:00] VITALS: BP_SYST 136
--- NOTE | 2019-09-05 10:10 | NUR ---
RN ROUNDS: PATIENT IS AWAKE AND ALERT x1 LAYING DOWN IN BED. PATIENT DENIES ANY PAIN AT THE MOMENT. NO SIGNS OF DISTRESS OR SHORTNESS OF BREATH NOTED. PATIENT IN STABLE CONDITION. WILL CONTINUE TO MONITOR PATIENT FOR ANY CHANGES.
[2019-09-05 11:09] LABS: BASOPHILS % (AUTO) 0.2 % (0.0-2.0); HEMOGLOBIN 11.5 g/dL (14.0-18.0); LYMPHOCYTES # (AUTO) 1.2 K/uL (1.0-5.5); LYMPHOCYTES % (AUTO) 12.4 % (20.5-51.5); MEAN CORPUSCULAR HEMOGLOBIN 32 pg (27-31); MEAN CORPUSCULAR HGB CONC 35 % (32-36); MEAN CORPUSCULAR VOLUME 91 fL (79.0-98.0); MONOCYTES # (AUTO) 0.6 K/uL (0.0-1.0); MONOCYTES % (AUTO) 6.5 % (1.7-9.3); NEUTROPHILS # (AUTO) 7.8 K/uL (1.8-7.7); NEUTROPHILS % (AUTO) 80.9 % (40.0-70.0); PLATELET COUNT (AUTO) 141 K/uL (130-430); RED BLOOD CELL COUNT(AUTO) 3.64 MIL/uL (4.2-6.2); RED CELL DISTRIBUTION WIDTH 13.9 % (9.0-15.0); WHITE BLOOD COUNT (AUTO) 9.6 K/uL (4.8-10.8)
[2019-09-05 11:17] LABS: ANION GAP 5 (5-15); CALCIUM 8.1 mg/dL (8.4-11.0); CHLORIDE 101 mmol/L (98-107); CREATININE 1.37 mg/dL (0.55-1.30); GLUCOSE 168 mg/dL (70-99); POTASSIUM 3.5 mmol/L (3.5-5.1); SODIUM SERUM 131 mmol/L (136-145); UREA NITROGEN, BLOOD 17 mg/dL (8-21)
--- NOTE | 2019-09-05 11:20 | NUR ---
IV INSERTION: NEW IV INSERTED IN RIGHT FOREARM 20 G. SUCCESSFUL AFTER ONE ATTEMPT. ASEPTIC TECHNIQUE USED. IV HAD BLOOD DRAWBACK AND FLUSHED WITHOUT ANY RESISTANCE. PATIENT TOLERATED IT WELL. IV SITE IS PATENT WITH NO SIGNS OF INFILTRATION.
[2019-09-05 11:22] LABS: ALANINE AMINOTRANSFERASE 28 U/L (12-78); ALBUMIN 2.5 g/dL (3.4-4.8); ASPARTATE AMINOTRANSFERASE 35 U/L (10-37); TOTAL BILIRUBIN 0.6 mg/dL (0.0-1.0)
[2019-09-05] MEDS: LEVOFLOXACIN 500 MG/D5W 100 ML IV SCH (11:36)
[2019-09-05] MEDS: INSULIN REGULAR, HUMAN 100 UNITS/ML, 10 ML VIAL (humuLIN R) SUBCUT PRN (11:38)
[2019-09-05 12:07] VITALS: BP_SYST 93
--- NOTE | 2019-09-05 14:17 | NUR ---
RN ROUNDS: PATIENT IS AWAKE AND ALERT x1. PATIENT WAS ASSISTED TO THE RESTROOM. PATIENT HAS STEADY GAIT AND WAS ASSISTED BACK TO BED. PATIENT DENIES ANY PAIN AT THE MOMENT. IV SITE IS PATENT WITH NO SIGNS OF INFILTRATION NOTED. PATIENT IN STABLE CONDITION. WILL CONTINUE TO MONITOR PATIENT FOR ANY CHANGES.
--- NOTE | 2019-09-05 15:09 | NUR ---
PAGED PAGED.CHAD MARTINEZ AT [phone] SPOKE WITH JOSE.
[2019-09-05 16:00] VITALS: BP_SYST 134
--- NOTE | 2019-09-05 16:03 | NUR ---
TRANSFER OF CARE: PATIENT MOVED OUT OF ISOLATION PER DR. NEWMAN DUE TO COVID-19 TEST COMING BACK NEGATIVE. PATIENT WAS TRANSFERRED TO ROOM 112B AND REPORT WAS GIVEN TO MYNOR JUAN. PATIENT IS TOLERATING OXYGEN ON ROOM AIR WITH NO SIGNS OF DISTRESS OR SHORTNESS OF BREATH NOTED. IV SITE IS PATENT WITH NO SIGNS OF INFILTRATION NOTED. PATIENT IN STABLE CONDITION.
--- NOTE | 2019-09-05 16:23 | NUR ---
rounds rec patient from [place]. awake but very confused. ambulates at bedside and insisted of discharging home but no order. ivf infusing well on the r forerm. no infiltration noted. bed to the lowest position and side rails up and locked.
--- NOTE | 2019-09-05 18:30 | NUR ---
closing notes still with periods of confusion and oriented patient. no sob noted.
--- NOTE | 2019-09-05 19:54 | NUR ---
INITIAL NOTE RECEIVED PATIENT AWAKE, AOX2. RESPIRATIONS EVEN AND UNLABORED ON ROOM AIR. TELE MONITOR IN PLACE. IVF RUNNING TO IV TO RIGHT FOREARM 20 GAUGE. PT TOLERATING. IV PATENT WITH NO SIGNS OF INFILTRATION NOTED. URINAL AVAILABLE AT BEDSIDE. BED IN LOWEST POSITION BED ALARM ON, SAFETY MEASURES IN PLACE. CALL LIGHT WITHIN REACH, PT DEMONSTRATES PROPER USE OF CALL LIGHT. WILL CONTINUE TO MONITOR.
[2019-09-05 20:00] VITALS: BP_SYST 154
[2019-09-05] MEDS: TAMSULOSIN HCL 0.4 MG CAP PO SCH (20:56)
--- NOTE | 2019-09-05 22:15 | NUR ---
ROUNDS PATIENT AWAKE WATCHING TV NO COMPLAINTS AT THIS TIME. WILL CONTINUE TO MONITOR.
[2019-09-06 00:06] VITALS: BP_SYST 138
--- NOTE | 2019-09-06 00:25 | NUR ---
ROUNDS ASSISTED PT TO USE URINAL, PT TOLERATED STANDING STEADILY AT BEDSIDE. PT BACK IN BED AND WATCHING TV COMFORTABLY. NO COMPLAINTS OF PAIN. CALL LIGHT WITHIN REACH.
--- NOTE | 2019-09-06 03:00 | NUR ---
Rounds Pt voided in urinal, emptied and cleaned. Patient back to bed. Call light remains within reach. Pt stable.
--- NOTE | 2019-09-06 06:15 | NUR ---
Closing Note Accucheck 124, no coverage needed at this time. Patient remains in bed resting comfortably with no signs of distress at this time. Bed in lowest position, bed alarm on. Call light within reach, Safety measures in place. Patient stable. Will continue to monitor until endorsed to am nurse.
[2019-09-06 08:00] VITALS: BP_SYST 110
--- NOTE | 2019-09-06 08:00 | NUR ---
initial notes rec patient awake alert, no periods of confusion noted at this this time. ivf infusing well on the r forearm. no infiltration noted. bed to the lowest position and side rails up and locked. call light withn reached and knows when to call for assistance.
[2019-09-06] MEDS ORDERED: FLAVONOID PO SCH (09:00)
--- NOTE | 2019-09-06 10:00 | NUR ---
rounds due meds were given and flaco well. ambulates at bedside and flaco well. no sob noted. seen by dr valencia and awaiting for dr rhodes to federico knight/elver.
[2019-09-06] MEDS ORDERED: LEVO500T89 PO (10:24)
--- NOTE | 2019-09-06 11:00 | NUR ---
rounds seen by dr rhodes and with order for d/c. no sob noted. resting comfortably.
[2019-09-06] MEDS: LEVOFLOXACIN 500 MG/D5W 100 ML IV SCH (12:00)
[2019-09-06 12:15] VITALS: BP_SYST 90
[2019-09-06 13:03] VITALS: BP_SYST 90
--- NOTE | 2019-09-06 13:30 | NUR ---
closing notes pt was wheeled outside via wheelchair. no sob noted. ivl was removed and id band. instructed re nathaniel with primary md and to greens picker prescription at [facility] in [place] and understood. stable and needs attended.
--- NOTE | 2019-09-08 14:58 | NUR ---
Discharge Follow Up Phone Call Phoned patient, , and spoke with patient's , Virgen. Virgen stated patient is improving. He had a follow up appointment with his PCP, Dr Owen, today, but Virgen postponed it to 09/12/19 as patient was still feeling somewhat weak. They filled his Levaquin rx and patient is taking his medications as directed. Virgen stated that a Yamileth RN called with a new prescription for patient's behavior. Yamileth is unsure if she wants patient to take it at his behavior has been tolerable lately and she has other medications to give him PRN. Advised that she bring in all discharge paperwork and name of the new suggested prescription to discuss with Dr Owen on Thursday. No other questions or concerns. Virgen stated she was very happy with patient's care provided by [facility].
== END 2019-09-06 13:50 | disposition home or self-care (01) | DRG 871 ==
LOC: SED 17:15 → EEVIPCON 19:02 → STU 19:02 → SMU 09-06 10:50
PROVIDERS: ADMIT Internal Medicine Hospice and Palliative Medicine; ATTEND Internal Medicine Hospice and Palliative Medicine
DX: A41.59 Other Gram-negative sepsis (principal); E43 Unspecified severe protein-calorie malnutrition; J96.01 Acute respiratory failure with hypoxia; J18.9 Pneumonia, unspecified organism; E27.40 Unspecified adrenocortical insufficiency; E87.1 Hypo-osmolality and hyponatremia; N12 Tubulo-interstitial nephritis, not specified as acute or chronic; E87.2 Acidosis; R65.20 Severe sepsis without septic shock; D64.9 Anemia, unspecified; E11.9 Type 2 diabetes mellitus without complications; K72.90 Hepatic failure, unspecified without coma; N40.0 Benign prostatic hyperplasia without lower urinary tract symptoms; N19 Unspecified kidney failure; M10.9 Gout, unspecified; Z20.828 Contact with and (suspected) exposure to other viral communicable diseases; G30.9 Alzheimer's disease, unspecified; F02.80 Dementia in other diseases classified elsewhere, unspecified severity, without behavioral disturbance, psychotic disturbance, mood disturbance, and anxiety; Z68.24 Body mass index [BMI] 24.0-24.9, adult; Z79.899 Other long term (current) drug therapy; Z83.3 Family history of diabetes mellitus
CPT/HCPCS: 36415; 36600; 70450-TC; 71045; 80053; 80307; 81000-TC; 82150-TC; 82550-TC; 82803-TC; 82962; 83605; 83690-TC; 84484; 85007; 85025; 85027; 85610-TC; 85730-TC; 86710; 87040-TC; 87086; 87186-TC; 93005; 94640; 96365; 96366; 96367; 99291; G0378; G0481; G0482; J0456; J0696; J1815; J1956; J2543; J7030; J7050; J7613; U0002

== ENCOUNTER 2021-02-15 11:22 | Emergency (ER) | payer BC, OTHER, SELFPAY ==
[~2021-02-15] VITALS: Ht 182.9 cm; Wt 90.7 kg
[~2021-02-15 11:22] MED LIST changes: +FLAVONOID PO; +LEVO500T89 PO; +LORA0.5T PO; -LOVA40TA75 PO
[2021-02-15 11:30] VITALS: BP_SYST 145
[2021-02-15] MEDS ORDERED: KETOROLAC TROMETHAMINE 60 MG/2 ML VIAL IM ONE (12:45)
[2021-02-15] MEDS ORDERED: ACETAMINOPHEN 500 MG TABLET PO ONE (12:45)
[2021-02-15] MEDS ORDERED: CYCLOBENZAPRINE HCL 10 MG TABLET (FLEXERIL) PO ONE (12:45)
[2021-02-15] MEDS ORDERED: ACET-2634 PO (13:18)
[2021-02-15] MEDS ORDERED: IBUP-1969 PO (13:18)
[2021-02-15] MEDS ORDERED: LIDO1ADH14 TP (13:18)
[2021-02-15 14:20] VITALS: BP_SYST 129
== END 2021-02-15 14:23 | disposition home or self-care (01) ==
LOC: SED 11:22
DX: G89.29 Other chronic pain (principal); M54.50 Low back pain, unspecified; E11.9 Type 2 diabetes mellitus without complications; Z79.899 Other long term (current) drug therapy
CPT/HCPCS: 96372; 99283; J1885

== ENCOUNTER 2022-07-11 18:37 | Inpatient (IN) | payer BC ==
[~2022-07-11] VITALS: Ht 172.7 cm; Wt 81.6 kg
[~2022-07-11 18:37] MED LIST changes: +ACET-2634 PO; +FINA5TAB3 PO; +IBUP-1969 PO; +LEVO-62 PO; -LEVO500T89 PO; +LIDO1ADH14 TP; +OMEP20CA15 PO; +ROSU10TA2 PO; +SER25 PO; +SULF1TAB48 PO
[2022-07-11 18:39] VITALS: BP_SYST 130
--- NOTE | 2022-07-11 18:44 | NUR ---
Placed in room 5 . Placed on youth nutritional monitor, blood pressure machine and pulse oximeter. To gown for exam. Side rails up. Report given to Lele LOWE.
[2022-07-11 20:17] LABS: BASOPHILS % (AUTO) 0.1 % (0.0-2.0); HEMATOCRIT 23.4 % (36-54); HEMOGLOBIN 8.2 g/dL (14.0-18.0); LYMPHOCYTES # (AUTO) 0.9 K/uL (1.0-5.5); LYMPHOCYTES % (AUTO) 9.4 % (20.5-51.5); MEAN CORPUSCULAR HEMOGLOBIN 32 pg (27-31); MEAN CORPUSCULAR HGB CONC 35 % (32-36); MEAN CORPUSCULAR VOLUME 91 fL (79.0-98.0); MONOCYTES # (AUTO) 0.8 K/uL (0.0-1.0); MONOCYTES % (AUTO) 8.3 % (1.7-9.3); NEUTROPHILS # (AUTO) 8.1 K/uL (1.8-7.7); NEUTROPHILS % (AUTO) 82.2 % (40.0-70.0); PLATELET COUNT (AUTO) 261 K/uL (130-430); RED BLOOD CELL COUNT(AUTO) 2.58 MIL/uL (4.2-6.2); RED CELL DISTRIBUTION WIDTH 14.1 % (9.0-15.0); WHITE BLOOD COUNT (AUTO) 9.8 K/uL (4.8-10.8)
[2022-07-11 20:19] LABS: ANION GAP 11 (5-15); CALCIUM 7.9 mg/dL (8.4-11.0); CHLORIDE 96 mmol/L (98-107); CREATININE 1.36 mg/dL (0.55-1.30); GLUCOSE 198 mg/dL (70-99); INR 1.1 (0.80-1.20); PROTHROMBIN TIME 10.9 SECS (9.5-12.5); UREA NITROGEN, BLOOD 16 mg/dL (8-21)
[2022-07-11 20:27] LABS: ALANINE AMINOTRANSFERASE 34 U/L (12-78); ALBUMIN 2.2 g/dL (3.4-4.8); ASPARTATE AMINOTRANSFERASE 27 U/L (10-37); TOTAL BILIRUBIN 0.8 mg/dL (0.0-1.0)
--- NOTE | 2022-07-11 20:46 | NUR ---
PT AWAKE AND ALERT. ANSWERED QUESTIONS APPROPRIATELY. ONLY REQUEST WAS WATER. . PT ON MONITORS.
[2022-07-11] MEDS ORDERED: iohexoL 350 mgI/mL, 100 ML INFUS..BTL IV ONE (21:05)
--- NOTE | 2022-07-11 21:12 | NUR ---
PT TO CT FOR CT ANGIO
--- NOTE | 2022-07-11 23:42 | NUR ---
CONTACTED SON FOR MED REC, SON DOES NOT HAVE PT MEDICATIONS TO CONFIRM FOR MED REC, CALLED AND SHE DID NOT ANSWER THE CALL.
[2022-07-11] MEDS ORDERED: LOSA50TA28 PO (23:49)
--- NOTE | 2022-07-11 23:50 | NUR ---
MED REC COMPLETED CALLED SON BACK, SON WAS ABLE TO REVIEW HOME MEDICATIONS WITH ME.
--- NOTE | 2022-07-11 23:55 | NUR ---
Admit bed requested Patient will be admitted to care of Admitted to Telemetry unit. Diagnosis Syncope, Anemia Inpatient (Yes or No) yes Observation (Yes or No) no Orientation concerns or request close to nursing station (Yes or No) no Covid Status negative On vent or bipap no Isolation requirements no Needs a sitter no From Home (Yes or if No enter name of facility) yes Requires Dialysis (Yes or No) no Med Rec Completed (Yes of No) yes
[2022-07-12] VITALS (8 sets, daily range): BP systolic 107–158
--- NOTE | 2022-07-12 03:20 | NUR ---
ADMISSION NOTE Received patient from ER via gurney. Patient admitted with diagnosis of syncope & anemia. Patient oriented to hospital room, call light, toileting, pain management and safety. Patient informed that Tyrel will be their nurse. Personal belongings checked and Belongings List documented. Call light within reach.
--- NOTE | 2022-07-12 04:19 | NUR ---
CONSULT TEXT TO DR. Shania SCHMIDT TO [phone] CONSULTATION TEXT FOR BRAYAN BEST FOR CONSULT OF SYNCOPE/ CARDIAC ORDER BY THOMAS GOMEZ
--- NOTE | 2022-07-12 06:18 | NUR ---
CLOSING NOTE PATIENT IN BED, RESTING AT THIS TIME. NO S/S OF ACUTE DISTRESS. BREATHING EVEN AND UNLABORED. IV SITE PATENT, NO SIGNS OF INFILTRATION OR INFECTION NOTED. ALL NEEDS MET THROUGHOUT SHIFT. FALL, SAFETY PRECAUTIONS MAINTAINED THROUGHOUT SHIFT. WILL CONTINUE TO MONITOR UNTIL PATIENT CARE IS ENDORSED TO ONCOMING DAYSHIFT NURSE.
--- NOTE | 2022-07-12 08:12 | NUR ---
OPENING NOTES: PT IN BED A/O X2. NO S/S OF DISTRESS OR PAIN. BREATHING IS EVEN AND UNLABORED ON RA. PT O2 STATING BETWEEN 82-99. CALLED DR MARQUEZ TO REPORT. WAITING FOR CALL BACK. HAVE PT ON OXIMETER TO MONITOR. CURRENT O2 IS 98. ALL NEEDS MET AT THIS TIME, SAFETY CHECKS MADE AND CALL LIGHT WITHIN REACH.
--- NOTE | 2022-07-12 10:39 | NUR ---
MD: DR MARQUEZ AT BEDSIDE. NEW ORDERS TO FOLLOW. DR MITCHELL BEDSIDE WITH PT.
--- NOTE | 2022-07-12 11:09 | NUR ---
MD: DR MITCHELL ORDERED ORTHOSTATIC VITALS. COMPLETED AND CHARTED.
[2022-07-12] MEDS: NACL 0.9% 1,000 ML IV SCH ×2 (11:33→20:59)
[2022-07-12] MEDS ORDERED: MIDODRINE HCL 5 MG TABLET (PROAMATINE) PO ONE (12:00)
[2022-07-12] MEDS: MIDODRINE HCL 5 MG TABLET (PROAMATINE) PO SCH ×2 (15:24→20:57)
--- NOTE | 2022-07-12 16:42 | NUR ---
CRITICAL LAB: HETAL from Laboratory called with critical lab value ECOLI ESVL ( AEROBIC BLOOD CULTURE). Medical record number and patient name verified. Read back of values done. DR MARQUEZ, N notified of value. NO orders given at this time.
--- NOTE | 2022-07-12 16:42 | NUR ---
: SPOKE WITH Lucian JUAREZ IN REGARDS TO PT HAVING ECOLI-ESBL. NO ANTIBIOTICS WILL BE ORDERED PATIENT'S WBC ARE NORMAL. Lucian JUAREZ WILL DO THE PATIENTS MEDICATION REC WELL. Addendum: 07/12/22 at 1821 by Madison MENDESN WBC IS 9.8
--- NOTE | 2022-07-12 16:45 | NUR ---
CONTACT ISOLATION: PT IS NOW ON CONTACT ISOLATION. SIGN IS OUTSIDE THE PT ROOM AND A DRAWER WITH GLOVES AND GOWNS IS PRESENT UNDERNEATH THE HAND AIRCRAFT LOADMASTER SUPERINTENDENT.
--- NOTE | 2022-07-12 19:24 | NUR ---
CLOSING NOTES: PT IN BED A/O X 2. NO S/S OF DISTRESS OR PAIN REPORTED. BREATHING EVEN AND UNLABORED ON RA. ALL NEEDS MET AT THIS TIME, SAFETY CHECKS MADE AND CALL LIGHT WITHIN REACH.
[2022-07-12] MEDS: HEPARIN SODIUM,PORCINE 5,000 UNITS/ML VIAL SUBCUT SCH (20:56)
--- NOTE | 2022-07-12 23:18 | NUR ---
pt resting in bed, alert, resited 22 g Angiocath to rt forearm x 1 attempt. bed in low safe position.
[2022-07-13 00:55] VITALS: BP_SYST 133
--- NOTE | 2022-07-13 00:56 | NUR ---
rounds made, pt continuously taking off telemetry leads. safety precautions maintained
[2022-07-13 03:23] VITALS: BP_SYST 151
[2022-07-13 06:21] LABS: BASOPHILS % (AUTO) 0.2 % (0.0-2.0); EOSINOPHILS % (AUTO) 0.2 % (0.0-4.0); HEMOGLOBIN 7.4 g/dL (14.0-18.0); LYMPHOCYTES % (AUTO) 17.3 % (20.5-51.5); MEAN CORPUSCULAR HEMOGLOBIN 32 pg (27-31); MEAN CORPUSCULAR HGB CONC 35 % (32-36); MEAN CORPUSCULAR VOLUME 89 fL (79.0-98.0); MONOCYTES # (AUTO) 0.6 K/uL (0.0-1.0); MONOCYTES % (AUTO) 10.3 % (1.7-9.3); NEUTROPHILS # (AUTO) 4.2 K/uL (1.8-7.7); PLATELET COUNT (AUTO) 259 K/uL (130-430); RED BLOOD CELL COUNT(AUTO) 2.34 MIL/uL (4.2-6.2); RED CELL DISTRIBUTION WIDTH 14.1 % (9.0-15.0); WHITE BLOOD COUNT (AUTO) 5.9 K/uL (4.8-10.8)
[2022-07-13 06:35] LABS: ALANINE AMINOTRANSFERASE 32 U/L (12-78); ALBUMIN 1.9 g/dL (3.4-4.8); ANION GAP 9 (5-15); ASPARTATE AMINOTRANSFERASE 26 U/L (10-37); CALCIUM 7.5 mg/dL (8.4-11.0); CHLORIDE 99 mmol/L (98-107); CREATININE 1.08 mg/dL (0.55-1.30); GLUCOSE 113 mg/dL (70-99); TOTAL BILIRUBIN 0.6 mg/dL (0.0-1.0); UREA NITROGEN, BLOOD 10 mg/dL (8-21)
[2022-07-13 06:50] LABS: HEMATOCRIT 20.9 % (36-54)
--- NOTE | 2022-07-13 06:54 | NUR ---
MD SEBASTIAN LOPEZ CALLED AT SPOKE WITH EXCHANGE, DR.RIZVIABID LOGISTICS INTERN.
--- NOTE | 2022-07-13 07:45 | NUR ---
NOTES: FLAT KNITTER HELPER NURSE INFORMED ME OF PT HGB AND HCT CRITICAL LAB OF 7.7/ 20.9. SHE CALLED THE DR AT 6:51 AM AND NO REPLY. ATTEMPTING TO CALL AGAIN NOW. Addendum: 07/13/22 at 0816 by Madison Bermudez LVN DR MARQUEZ CALLED BACK. NO NEW ORDERS GIVEN AT THIS TIME.
--- NOTE | 2022-07-13 07:47 | NUR ---
0651 Critical value read back to labor law professor for H/H 7.4/20.9. SED MIDDLE SCHOOL TEACHER PAGED BY IC DESIGNER CUSTOM. PT RESTING IN BED, IVF INFUSING PER ORDERS. REPORT ENDORSED TO AM NURSE
--- NOTE | 2022-07-13 07:55 | NUR ---
OPENING NOTES: PT IN BED WITH EYES CLOSED. RESPONDED TO HEARING HIS NAME. NO S/S OF DISTRESS OR PAIN REPORTED. VITAL SIGNS STABLE. BREATHING IS EVEN AND UNLABORED ON RA. ALL NEEDS MET AT THIS TIME, SAFETY CHECKS MADE AND CALL LIGHT WITHIN REACH.
--- NOTE | 2022-07-13 07:56 | NUR ---
2ND PAGE OUT TO MD LOPEZ CALLED AT SPOKE WITH SUHAS, ,GROVER IS EMBROIDERY ASSISTANT.
[2022-07-13 08:00] VITALS: BP_SYST 158
--- NOTE | 2022-07-13 08:02 | NUR ---
OPENING NOTES: PT IN BED WITH EYES CLOSED. NO S/S OF DISTRESS OR PAIN. BREATHING IS EVEN AND UNLABORED ON RA 96%. ALL NEEDS MET AT THIS TIME, SAFETY CHECKS MADE AND CALL LIGHT WITHIN REACH.
--- NOTE | 2022-07-13 08:16 | NUR ---
: TOLD DR MARQUEZ THAT THE PATIENT NEEDS A MED REC.
[2022-07-13] MEDS: MIDODRINE HCL 5 MG TABLET (PROAMATINE) PO SCH ×3 (08:40→22:11)
[2022-07-13] MEDS: HEPARIN SODIUM,PORCINE 5,000 UNITS/ML VIAL SUBCUT SCH ×2 (08:42→22:12)
[2022-07-13] MEDS ORDERED: POTASSIUM CHLORIDE 40 MEQ in D5W 250 ML IV SCH (10:00)
[2022-07-13] MEDS ORDERED: LOSARTAN POTASSIUM 25 MG TABLET PO ONE (10:30)
[2022-07-13 12:10] VITALS: BP_SYST 148
[2022-07-13] MEDS: POTASSIUM CHLORIDE 40 MEQ in D5W 250 ML IV SCH ×2 (13:26→16:47)
--- NOTE | 2022-07-13 13:55 | NUR ---
CRITICAL LAB: VALE CALLED WITH MRSA NARES RESULT. PAGED DR MARQUEZ N TO REPORT.
--- NOTE | 2022-07-13 14:25 | NUR ---
CRITICAL LAB/ MD: REPORTED MRSA OF NARES TO Ugo JUAREZ AND ASKED FOR ZOFRAN PT IS NAUSEOUS.
[2022-07-13] MEDS ORDERED: ONDANSETRON HCL 4 MG/2 ML VIAL IVP PRN (14:30)
[2022-07-13] MEDS ORDERED: FINASTERIDE 5 MG TABLET (PROSCAR) PO ONE (15:45)
[2022-07-13] MEDS ORDERED: TAMSULOSIN HCL 0.4 MG CAP PO ONE (15:45)
[2022-07-13] MEDS ORDERED: QUEtiapine FUMARATE 25 MG TABLET PO ONE (15:45)
[2022-07-13 16:00] VITALS: BP_SYST 150
--- NOTE | 2022-07-13 16:00 | NUR ---
CONSULTATION PAGED REASON FOR CONSULTATION:SX SITE BLEEDING WAS CONSULT CALLED?Y PERSON WHO WAS NOTIFIED:GRADY CONSULTING PHYSICIAN:ISRAEL MACKENZIE MYRON RODEO CLOWN SPECIALTY:SURGEON RODEO CLOWN PHONE NUMBER:[phone] REQUESTING PHYSICIAN:GROVER ROQUE
--- NOTE | 2022-07-13 16:16 | NUR ---
ROUNDS: FOUND PT'S INCISION HAS SEROSANGUINEOUS DRAINAGE ON ABDOMINAL PAD. IT IS ACTIVELY DRAINING. CALLED DR WOOD AND HE SAID TO CONTINUE TO CHANGE ABDOMINAL PADS PRN FOR DRAINAGE AND TO APPLY AN ABDOMINAL BINDER.
--- NOTE | 2022-07-13 16:39 | NUR ---
DR MARQUEZ HAS ORDERED BLOOD TRANSFUSION FOR THE PT IF HIS HEMOGLOBIN IS LESS THAN 7.0 THE LAST BLOOD DRAW AT 12 NOON ON 07/13/22 THE HEMOGLOBIN WAS 7.7 THE NEXT BLOOD DRAW WILL BE AT 5AM ON 07/14/22. HEMOGLOBIN NEEDS TO BE VERIFIED AT THIS TIME.
--- NOTE | 2022-07-13 18:54 | NUR ---
CLOSING NOTES: PT IN BED. PT FAMILY AT BEDSIDE FEEDING PATIENT DINNER. NO S/S OF DISTRESS OR PAIN REPORTED. BREATHING IS EVEN AND UNLABORED ON RA. ABDOMINAL BINDER IS SECURE AND ABDOMINAL DRESSING INTACT. ALL NEEDS MET AT THIS TIME, SAFETY CHECKS MADE AND CALL LIGHT WITHIN REACH. WILL ENDORSE TO NIGHT NURSE.
[2022-07-13 20:00] VITALS: BP_SYST 124
[2022-07-13] MEDS ORDERED: NALOXONE HCL 0.4 MG/ML AMP (NARCAN) IVP PRN (21:30)
[2022-07-13] MEDS: HYDROcodone/ACETAMIN 5-325 MG TAB (NORCO/ VICODIN) PO PRN (22:11)
[2022-07-14 01:03] VITALS: BP_SYST 116; BP_SYST 88
[2022-07-14 01:10] VITALS: BP_SYST 123
[2022-07-14 05:04] LABS: ALANINE AMINOTRANSFERASE 28 U/L (12-78); ALBUMIN 1.7 g/dL (3.4-4.8); ANION GAP 6 (5-15); ASPARTATE AMINOTRANSFERASE 23 U/L (10-37); CALCIUM 7.1 mg/dL (8.4-11.0); CHLORIDE 104 mmol/L (98-107); CREATININE 1.25 mg/dL (0.55-1.30); GLUCOSE 142 mg/dL (70-99); TOTAL BILIRUBIN 0.4 mg/dL (0.0-1.0); UREA NITROGEN, BLOOD 9 mg/dL (8-21)
--- NOTE | 2022-07-14 06:30 | NUR ---
Mr Funez has not rested well this shift. He has called out or assistance to void frequently. He may have to go right away and at times he has to wait for his urine stream to flow. he uses the urinal with placement assistance and is often incontinent of bladder. IVF have been stopped per JUL. IV access flushes well. He has c/o pain o the Right flank surgical site. He has bee successfully treated for the pain with newly ordered PO [place]. the site has a small area that continues to drain s/s fluids. the dressing has been changed at the start of the shift and is CDI at this time. a condom catheter has been placed to assist to decrease his anxiety around the need to void as well as to keep his skin dry. He has recently been given his second dose of [place] and is resting quietly at this time
[2022-07-14] MEDS: HYDROcodone/ACETAMIN 5-325 MG TAB (NORCO/ VICODIN) PO PRN ×3 (06:47→21:58)
--- NOTE | 2022-07-14 07:22 | NUR ---
Handoff has been given to [place]
[2022-07-14 08:00] VITALS: BP_SYST 110
[2022-07-14 08:03] LABS: BASOPHILS % (AUTO) 0.2 % (0.0-2.0); EOSINOPHILS % (AUTO) 0.2 % (0.0-4.0); LYMPHOCYTES # (AUTO) 1.4 K/uL (1.0-5.5); LYMPHOCYTES % (AUTO) 27.1 % (20.5-51.5); MEAN CORPUSCULAR HEMOGLOBIN 31 pg (27-31); MEAN CORPUSCULAR HGB CONC 34 % (32-36); MEAN CORPUSCULAR VOLUME 90 fL (79.0-98.0); MONOCYTES # (AUTO) 0.6 K/uL (0.0-1.0); MONOCYTES % (AUTO) 11.8 % (1.7-9.3); NEUTROPHILS # (AUTO) 3.1 K/uL (1.8-7.7); NEUTROPHILS % (AUTO) 60.7 % (40.0-70.0); PLATELET COUNT (AUTO) 279 K/uL (130-430); RED BLOOD CELL COUNT(AUTO) 2.21 MIL/uL (4.2-6.2); RED CELL DISTRIBUTION WIDTH 14.3 % (9.0-15.0); WHITE BLOOD COUNT (AUTO) 5.2 K/uL (4.8-10.8)
[2022-07-14] MEDS ORDERED: LOSARTAN POTASSIUM 25 MG TABLET PO SCH (09:00)
[2022-07-14] MEDS ORDERED: OMEPRAZOLE Non-Formulary 20 MG CAPSULE.DR PO SCH (09:00)
[2022-07-14] MEDS ORDERED: ROSUVASTATIN CALCIUM 5 MG/TAB (CRESTOR) PO SCH (09:00)
[2022-07-14] MEDS: LOSARTAN POTASSIUM 50 MG TABLET (COZAAR) PO SCH (09:00)
[2022-07-14] MEDS: MIDODRINE HCL 5 MG TABLET (PROAMATINE) PO SCH ×3 (09:01→21:57)
[2022-07-14] MEDS: FINASTERIDE 5 MG TABLET (PROSCAR) PO SCH (09:02)
[2022-07-14] MEDS: TAMSULOSIN HCL 0.4 MG CAP PO SCH (09:02)
[2022-07-14] MEDS: QUEtiapine FUMARATE 25 MG TABLET PO SCH (09:03)
[2022-07-14] MEDS: ATORVASTATIN 20 MG TABLET PO SCH (09:04)
[2022-07-14] MEDS: HEPARIN SODIUM,PORCINE 5,000 UNITS/ML VIAL SUBCUT SCH ×2 (09:05→21:59)
[2022-07-14] MEDS: PANTOPRAZOLE SODIUM 40 MG TAB PO SCH (09:15)
[2022-07-14 09:57] LABS: HEMOGLOBIN 6.7 g/dL (14.0-18.0)
[2022-07-14 09:58] LABS: HEMATOCRIT 19.8 % (36-54)
[2022-07-14 11:25] VITALS: BP_SYST 106
--- NOTE | 2022-07-14 12:15 | NUR ---
Assessment re: social media director referral The patient is an 82-year-old male who is alert and oriented. I completed an initial assessment at bedside. The patient was resting in bed, but was in agreement to speaking with me. The patient states he resides in a single-story home with his . Per patient, he was using no assistive devices prior to his admission here at the hospital. He was independent with his care needs. The patient does not have a Power of Electrical Engineering Technician. The discharge plan is to return home with . The home health agency in place is [facility] ([phone]) The patient was advised that at time of discharge, he will be assessed for appropriate needs and services. Per patient, there are no anticipated discharge needs in place for the patient. At time of discharge, the patient states his will transport him home. Addendum: 07/14/22 at 1710 by Sarah Henderson DP Amended: Links added.
--- NOTE | 2022-07-14 14:29 | NUR ---
15 MINS POST TRANSFUSION VS 128/70, 20,93,97.9, NO SOB OR REACTIONS OBSERVED
--- NOTE | 2022-07-14 15:42 | NUR ---
PATIENT UNABLE TO PARTICIPATE IN PT TREATMENT TODAY D/T LOW HGB AND HCT.
[2022-07-14 15:50] VITALS: BP_SYST 125
--- NOTE | 2022-07-14 16:40 | NUR ---
1 U PRBC COMPLETE, NO ADVERSE S/SX NOTED
--- NOTE | 2022-07-14 16:57 | NUR ---
PT TRANSPORTED TO HAVE ST OF ABDOMEN COMPLETE
[2022-07-14 20:00] VITALS: BP_SYST 135
[2022-07-15] VITALS (7 sets, daily range): BP systolic 126–167
--- NOTE | 2022-07-15 01:40 | NUR ---
2nd unit of PRBC started
--- NOTE | 2022-07-15 01:55 | NUR ---
15 mins post transfusion. Well tolerated.
--- NOTE | 2022-07-15 04:30 | NUR ---
Transfusion complete. 300ml well tolerated.
--- NOTE | 2022-07-15 07:04 | NUR ---
Mr Funez has been assessed as indicated. He has been treated for abdominal pain x1 this shift. He continues to have bladder urgency and frequency. At times he is able to successfully use the urinal and at other times he is incontinent of bladder. He has not had a BM this shift. He did receive the 2 of 2 units of PRBC. This was well tolerated. IV access was re-established prior to starting the blood transfusion. the surgical incision to the right flank continues to drain. the drainage is now a dark pink creamy color that is malodorous. drainage had seeped thru the ABD dressing as well as the abdominal binder. VSS. Mr Funez is resting quietly at this time with no s/s of distress or discomfort
--- NOTE | 2022-07-15 07:25 | NUR ---
Dr Fernández notified related to the changes in the the output of open incision. He states that he will input orders.
--- NOTE | 2022-07-15 07:30 | NUR ---
Handoff has been given to Key
--- NOTE | 2022-07-15 08:24 | NUR ---
INITIAL ROUNDS Received pt AAOx2, forgetful at times, talking in both Bulgarian and Azeri. 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 No s/s resp distress, c/o pain 5/10 to right abd-will check on pain medications. Pt, Virgen at bedside and plan of care reviewed with her-teach back done. Noted soiled dressing to right abd, abd binder in place. Pain management, skin and safety discussed-teach back done with . Side rails up x3, bed alarm ond room across from nursing station for safety. Call light within reach.
[2022-07-15] MEDS: MIDODRINE HCL 5 MG TABLET (PROAMATINE) PO SCH ×3 (09:42→21:00)
[2022-07-15] MEDS: HEPARIN SODIUM,PORCINE 5,000 UNITS/ML VIAL SUBCUT SCH ×2 (09:42→22:00)
[2022-07-15] MEDS: QUEtiapine FUMARATE 25 MG TABLET PO SCH (09:42)
[2022-07-15] MEDS: FINASTERIDE 5 MG TABLET (PROSCAR) PO SCH (09:43)
[2022-07-15] MEDS: PANTOPRAZOLE SODIUM 40 MG TAB PO SCH (09:43)
[2022-07-15] MEDS: TAMSULOSIN HCL 0.4 MG CAP PO SCH (09:43)
[2022-07-15] MEDS: ATORVASTATIN 20 MG TABLET PO SCH (09:43)
[2022-07-15] MEDS: LOSARTAN POTASSIUM 50 MG TABLET (COZAAR) PO SCH (09:44)
[2022-07-15] MEDS: CIPROFLOXACIN LACT 200 MG/D5W 100 ML IV SCH ×2 (09:44→21:58)
--- NOTE | 2022-07-15 10:15 | NUR ---
ROUNDS/PAIN MEDS Pt assisted with repositioning in bed, pt offered pain medication-pt stated he has no pain now. All precautions remain in place.
--- NOTE | 2022-07-15 12:25 | NUR ---
>>>PT NOTES<<< PATIENT REFUSED PHYSICAL THERAPY TODAY. VERBALIZES HE IS NOT UP TO IT TODAY.
--- NOTE | 2022-07-15 13:45 | NUR ---
INCISION CARE Old dressing removed, area cleansed with normal saline, abd dressing placed over site, secured in place with paper tape and covered with an abd binder. Pt tolerated well. All precautions remain in place. Call light within reach.
[2022-07-15 15:57] LABS: BASOPHILS % (AUTO) 0.2 % (0.0-2.0); EOSINOPHILS % (AUTO) 0.1 % (0.0-4.0); HEMATOCRIT 27.5 % (36-54); HEMOGLOBIN 9.6 g/dL (14.0-18.0); LYMPHOCYTES # (AUTO) 0.9 K/uL (1.0-5.5); LYMPHOCYTES % (AUTO) 20.5 % (20.5-51.5); MEAN CORPUSCULAR HEMOGLOBIN 31 pg (27-31); MEAN CORPUSCULAR HGB CONC 35 % (32-36); MEAN CORPUSCULAR VOLUME 88 fL (79.0-98.0); MONOCYTES # (AUTO) 0.6 K/uL (0.0-1.0); MONOCYTES % (AUTO) 14.4 % (1.7-9.3); NEUTROPHILS # (AUTO) 2.8 K/uL (1.8-7.7); NEUTROPHILS % (AUTO) 64.8 % (40.0-70.0); PLATELET COUNT (AUTO) 277 K/uL (130-430); RED BLOOD CELL COUNT(AUTO) 3.13 MIL/uL (4.2-6.2); RED CELL DISTRIBUTION WIDTH 14.5 % (9.0-15.0); WHITE BLOOD COUNT (AUTO) 4.3 K/uL (4.8-10.8)
[2022-07-15] MEDS: HYDROcodone/ACETAMIN 5-325 MG TAB (NORCO/ VICODIN) PO PRN (16:10)
--- NOTE | 2022-07-15 17:08 | NUR ---
DID WOUND CARE Dr. Pradeep villarreal MD removed helga from abd. incision. MD cleansed the open area with normal saline, then placed a wet to dry dressing, covered with an abd binder and secured with paper tape and abd binder.
[2022-07-15 18:31] LABS: ALANINE AMINOTRANSFERASE 32 U/L (12-78); ANION GAP 8 (5-15); ASPARTATE AMINOTRANSFERASE 24 U/L (10-37); CALCIUM 7.6 mg/dL (8.4-11.0); CHLORIDE 101 mmol/L (98-107); CREATININE 1.28 mg/dL (0.55-1.30); GLUCOSE 189 mg/dL (70-99); TOTAL BILIRUBIN 0.7 mg/dL (0.0-1.0); UREA NITROGEN, BLOOD 11 mg/dL (8-21)
--- NOTE | 2022-07-15 19:19 | NUR ---
CLOSING NOTE Pt resting quietly in bed with no s/s resp distress, no further c/o pain or discomfort. Contact isolation precautions remain in place. Aspiration, skin and safety precautions remain in place. Call light within reach.
--- NOTE | 2022-07-15 22:02 | NUR ---
Midodrine held blood pressure 162/83
[2022-07-16 00:15] VITALS: BP_SYST 153
[2022-07-16] MEDS ORDERED: GLUCOSE (DEXTROSE) ORAL GEL -Adults PO PRN (01:00)
[2022-07-16] MEDS ORDERED: D5W 1,000 ML IV PRN (01:00)
[2022-07-16] MEDS ORDERED: DEXTROSE 50% JECT 50 ML DISP.SYRIN IVP PRN (01:00)
--- NOTE | 2022-07-16 02:57 | NUR ---
CONSULTATION PAGED/CALLED Reason for Consultation: [facility] Person Who was Notified: JOSE Consulting Physician: MACIEJ Skin Therapist Specialty: Ordering Physician: THOMAS
--- NOTE | 2022-07-16 06:30 | NUR ---
Mr Funez has been assessed as indicated. He c/o pain intermittently. when offered pain medication he declines. He has rested poorly.This is due to frequent urination that is uncomfortable for him. He voids in the urinal and has been incontinent this shift. the dressing to his surgical incision has been changed this morning. Orders have been obtained for Accucheck AC/HS it has been reported that Mr Funez may be a diabetic. His blood sugars on AM draws have been increasing. A hgba1c has been ordered as well. A urology consult has been ordered due to dysuria, frequency, and urgency. infectious disease has been consulted related to wound drainage. It continues to be pink and purulent as well as malodorous. He has not had a BM for 4 days Miralx and Colace have been ordered. He has tolerated IV Cipro well. This morning blood sugar was 147. He is resting quietly at this time
[2022-07-16 07:07] LABS: BASOPHILS % (AUTO) 0.3 % (0.0-2.0); EOSINOPHILS % (AUTO) 0.1 % (0.0-4.0); HEMATOCRIT 27.6 % (36-54); HEMOGLOBIN 9.5 g/dL (14.0-18.0); LYMPHOCYTES # (AUTO) 0.8 K/uL (1.0-5.5); LYMPHOCYTES % (AUTO) 18.6 % (20.5-51.5); MEAN CORPUSCULAR HEMOGLOBIN 30 pg (27-31); MEAN CORPUSCULAR HGB CONC 34 % (32-36); MEAN CORPUSCULAR VOLUME 88 fL (79.0-98.0); MONOCYTES # (AUTO) 0.7 K/uL (0.0-1.0); MONOCYTES % (AUTO) 15.1 % (1.7-9.3); NEUTROPHILS # (AUTO) 2.9 K/uL (1.8-7.7); NEUTROPHILS % (AUTO) 65.9 % (40.0-70.0); PLATELET COUNT (AUTO) 293 K/uL (130-430); RED BLOOD CELL COUNT(AUTO) 3.15 MIL/uL (4.2-6.2); RED CELL DISTRIBUTION WIDTH 14.4 % (9.0-15.0); WHITE BLOOD COUNT (AUTO) 4.4 K/uL (4.8-10.8)
--- NOTE | 2022-07-16 07:30 | NUR ---
Handoff has been given to Sherrell
--- NOTE | 2022-07-16 08:00 | NUR ---
CONSULTATION PAGED REASON FOR CONSULTATION:[facility] WAS CONSULT CALLED?Y PERSON WHO WAS NOTIFIED:MARIANO PORTILLO CONSULTING PHYSICIAN:MARIANO PORTILLO COATING MIXER TENDER SPECIALTY:UROLOGY COATING MIXER TENDER PHONE NUMBER:[phone] REQUESTING PHYSICIAN:PEÑA GARZA
[2022-07-16 08:05] LABS: ALANINE AMINOTRANSFERASE 29 U/L (12-78); ANION GAP 8 (5-15); ASPARTATE AMINOTRANSFERASE 25 U/L (10-37); CALCIUM 7.8 mg/dL (8.4-11.0); CHLORIDE 102 mmol/L (98-107); CREATININE 1.08 mg/dL (0.55-1.30); GLUCOSE 159 mg/dL (70-99); TOTAL BILIRUBIN 0.7 mg/dL (0.0-1.0); UREA NITROGEN, BLOOD 11 mg/dL (8-21)
[2022-07-16] MEDS: CIPROFLOXACIN LACT 200 MG/D5W 100 ML IV SCH ×2 (09:36→21:20)
[2022-07-16] MEDS: POLYETHYLENE GLYCOL 3350, 17 GM/ POWD.PACK PO SCH (09:36)
[2022-07-16] MEDS: TAMSULOSIN HCL 0.4 MG CAP PO SCH (09:36)
[2022-07-16] MEDS: FINASTERIDE 5 MG TABLET (PROSCAR) PO SCH (09:36)
[2022-07-16] MEDS: ATORVASTATIN 20 MG TABLET PO SCH (09:37)
[2022-07-16] MEDS: QUEtiapine FUMARATE 25 MG TABLET PO SCH (09:37)
[2022-07-16] MEDS: MIDODRINE HCL 5 MG TABLET (PROAMATINE) PO SCH ×3 (09:37→21:00)
[2022-07-16] MEDS: PANTOPRAZOLE SODIUM 40 MG TAB PO SCH (09:38)
[2022-07-16] MEDS: LOSARTAN POTASSIUM 50 MG TABLET (COZAAR) PO SCH (09:38)
[2022-07-16] MEDS: DOCUSATE SODIUM 100 MG CAPSULE PO SCH (09:38)
[2022-07-16] MEDS: HEPARIN SODIUM,PORCINE 5,000 UNITS/ML VIAL SUBCUT SCH ×2 (09:39→21:30)
[2022-07-16] MEDS: HYDROcodone/ACETAMIN 5-325 MG TAB (NORCO/ VICODIN) PO PRN (09:55)
[2022-07-16] MEDS: INSULIN LISPRO SLIDING SCALE 100 UNITS/ML, 3 ML VIAL (humaLOG) SUBCUT PRN ×2 (11:39→21:43)
[2022-07-16 12:26] VITALS: BP_SYST 140
[2022-07-16] MEDS ORDERED: METOPROLOL SUCCINATE 25 MG TAB.SR.24H (TOPROL XL) PO ONE (13:00)
--- NOTE | 2022-07-16 13:42 | NUR ---
RN MEDICALLY CLEARED PATIENT FOR PT TREATMENT, HOWEVER PATIENT REFUSED DESPITE MAX ENCOURAGEMENT. FADI STATES HE WILL TRY IN A FEW DAYS BUT NOT TODAY.
--- NOTE | 2022-07-16 16:00 | NUR ---
pt has urgency for urination,diego FOSTER CARE WORKER came and seen pt at bedside,bladder scan done 125ml offered urinal,order received for renal u/s.continue to monitor pt.
[2022-07-16 16:33] VITALS: BP_SYST 122
--- NOTE | 2022-07-16 16:51 | NUR ---
Stephany referral faxed to Anish Starbuck at the request of the . The patient has limited income (approximately $800) and the would like to see if the patient can qualify for medical. Stephany referral: [phone]; F: [phone]
--- NOTE | 2022-07-16 19:50 | NUR ---
RECEIVED PT IN BED, AOX3, DENIED ANY PAIN OT SOB ATT, RT ABD INCISION WITH BLOOD STAIN BUT NO ACTIVE BLEEDING, ABD BINDER IN PLACE, PT ON BED REST, SALINE LOCK TO RFA, PATENT, WILL CONTINUE WITH POC
[2022-07-16 20:05] VITALS: BP_SYST 140
[2022-07-17] VITALS (7 sets, daily range): BP systolic 106–168
--- NOTE | 2022-07-17 07:00 | NUR ---
PT IN BED, AOX3, DENIED ANY PAIN OR SOB ATT, RT ABD INCISION DSG WITH BLOOD STAIN BUT NO ACTIVE BLEEDING NOTED DURING SHIFT, ABD BINDER IN PLACE, PT ON BED REST, ABOUT TO TURN, PATENT SALINE LOCK TO RFA, BS MANAGED ACCORDING TO SLIDING SCALE, SAFETY PREC MAINTAINED, CALL LIGHT WITHIN REACH, WILL BE ENDORSED TO INCOMING RN
[2022-07-17] MEDS ORDERED: METOPROLOL SUCCINATE 25 MG TAB.SR.24H (TOPROL XL) PO SCH (09:00)
[2022-07-17] MEDS: CIPROFLOXACIN LACT 200 MG/D5W 100 ML IV SCH ×2 (09:24→22:21)
[2022-07-17] MEDS: ATORVASTATIN 20 MG TABLET PO SCH (09:27)
[2022-07-17] MEDS: FINASTERIDE 5 MG TABLET (PROSCAR) PO SCH (09:29)
[2022-07-17] MEDS: TAMSULOSIN HCL 0.4 MG CAP PO SCH (09:30)
[2022-07-17] MEDS: DOCUSATE SODIUM 100 MG CAPSULE PO SCH (09:30)
[2022-07-17] MEDS: QUEtiapine FUMARATE 25 MG TABLET PO SCH (09:31)
[2022-07-17] MEDS: LOSARTAN POTASSIUM 50 MG TABLET (COZAAR) PO SCH (09:31)
[2022-07-17] MEDS: PANTOPRAZOLE SODIUM 40 MG TAB PO SCH (09:31)
[2022-07-17] MEDS: POLYETHYLENE GLYCOL 3350, 17 GM/ POWD.PACK PO SCH (09:32)
[2022-07-17] MEDS: MIDODRINE HCL 5 MG TABLET (PROAMATINE) PO SCH ×3 (09:33→22:20)
[2022-07-17] MEDS: MUPIROCIN 2% TOPICAL OINTMENT 22 GM TP SCH ×2 (09:35→21:00)
[2022-07-17] MEDS: HEPARIN SODIUM,PORCINE 5,000 UNITS/ML VIAL SUBCUT SCH ×2 (09:41→22:42)
[2022-07-17] MEDS ORDERED: LIDOCAINE 1%, 20 ML MDV 0 ML ONE (10:13)
[2022-07-17] MEDS: INSULIN LISPRO SLIDING SCALE 100 UNITS/ML, 3 ML VIAL (humaLOG) SUBCUT PRN ×3 (11:45→23:05)
--- NOTE | 2022-07-17 11:59 | NUR ---
WOUND EVALUATION: Wound Consult received from Dr. Loyola. Thank you, Dr. Loyola, for the consult. Patient received in a Alverto Bed with a mattress, awake, alert, and oriented. Patient is unable to turn independently. Robel Score is a 14. Past Medical History: hypertension, diabetes, hyperlipidemia, status post cholecystectomy 07/17. Recent Labs: WBC 4.4, RBC 3.15, Hgb 9.5, Hct 27.6, Plt 293, K 3.5, albumin 2, glucose 159, calcium 7.8, A1C 6.4. Microbiology: MRSA nares; wound culture pending. Intrinsic factors that delay wound healing: diabetes, hyperlipidemia. Extrinsic factors that delay wound healing: Decreased mobility, scar tissue. Wound Assessment: Right Abdomen Surgical incision, present on admission. Mid portion of incision is dehisced. Dehisced site has 5% yellow, 10% black, 85% light pink. No odor, moderate yellow purulent drainage. Dehisced site measures 0.8 cm x 2.7 cm x 2.3 cm. Entire site measures 0.8 cm x 21.2 cm. Tunnel present from dehisced area traveling medially, slightly past site 2. Right Abdomen, Medial to Site 1 Dehisced portion of incision. Dehisced site has no visible tissue, no odor, no drainage. Measures 0.3 cm x 0.6 cm. Recommend: Cleanse wound with normal saline. Apply moisture barrier cream onto juliana-wound. Apply hydrogel to both sites. Pack sites with 1/4 inch iodoform packing. Cover with alginate dressing and ABD pad. Secure with transparent dressings. Perform wound care daily, and as needed for dressing soiling or dislodgement. Sacral/Buttock/Intergluteal Cleft Scar tissue, present on admission. Skin is intact. Inferior Perianal Area Scar tissue, present on admission. Skin is intact. Recommend: Cleanse with mild soap and water. Apply moisture barrier cream QID and as needed for soiling. Also recommend: Reposition patient every 2 hours with pillow support and off-load pressure areas with pillows for pressure re-distribution. Offload, elevate and float bilateral heels with pillows. Perform skin care and monitor skin integrity Q shift. Use moisture barrier cream on buttocks and other moisture susceptible areas QID and as needed for soiling. Place patient on a low air-loss mattress.
[2022-07-17] MEDS ORDERED: METOPROLOL SUCCINATE 25 MG TAB.SR.24H (TOPROL XL) PO ONE (13:30)
[2022-07-17] MEDS: HYDROcodone/ACETAMIN 5-325 MG TAB (NORCO/ VICODIN) PO PRN ×2 (14:26→22:20)
--- NOTE | 2022-07-17 15:49 | NUR ---
Dietitian Recommendations * CCHO, Cardiac diet * Roshan BID (180 kcal/day, 5 gm protein/day) * Prosource BID (120 kcal/day, 30 gm protein/day) * Snacks BID LP, MS, RD Please refer to Nutrition Assessment for details. Addendum: 07/17/22 at [address] Amended: Links added.
--- NOTE | 2022-07-17 17:47 | NUR ---
wound care performed by nurse on 07/17/22 during day shift.
[2022-07-17] MEDS: DOXYCYCLINE HYCLATE 100 MG CAPSULE PO SCH (22:21)
[2022-07-17] MEDS: MUPIROCIN 2% TOPICAL OINTMENT 22 GM NS SCH (22:38)
[2022-07-18 00:13] VITALS: BP_SYST 106
[2022-07-18] MEDS: HYDROcodone/ACETAMIN 5-325 MG TAB (NORCO/ VICODIN) PO PRN ×4 (01:51→09:25)
[2022-07-18 02:06] VITALS: BP_SYST 114
[2022-07-18 08:19] VITALS: BP_SYST 114
[2022-07-18] MEDS: MUPIROCIN 2% TOPICAL OINTMENT 22 GM TP SCH (09:00)
[2022-07-18] MEDS: MIDODRINE HCL 5 MG TABLET (PROAMATINE) PO SCH ×3 (09:00→21:45)
[2022-07-18] MEDS: TAMSULOSIN HCL 0.4 MG CAP PO SCH (09:23)
[2022-07-18] MEDS: DOCUSATE SODIUM 100 MG CAPSULE PO SCH (09:23)
[2022-07-18] MEDS: LOSARTAN POTASSIUM 50 MG TABLET (COZAAR) PO SCH (09:24)
[2022-07-18] MEDS: PANTOPRAZOLE SODIUM 40 MG TAB PO SCH (09:25)
[2022-07-18] MEDS: METOPROLOL SUCCINATE 25 MG TAB.SR.24H (TOPROL XL) PO SCH (09:25)
[2022-07-18] MEDS: ATORVASTATIN 20 MG TABLET PO SCH (09:25)
[2022-07-18] MEDS: FINASTERIDE 5 MG TABLET (PROSCAR) PO SCH (09:25)
[2022-07-18] MEDS: QUEtiapine FUMARATE 25 MG TABLET PO SCH (09:25)
[2022-07-18] MEDS: HEPARIN SODIUM,PORCINE 5,000 UNITS/ML VIAL SUBCUT SCH ×2 (09:26→21:48)
[2022-07-18] MEDS: POLYETHYLENE GLYCOL 3350, 17 GM/ POWD.PACK PO SCH (09:27)
[2022-07-18] MEDS: CIPROFLOXACIN LACT 200 MG/D5W 100 ML IV SCH (09:27)
[2022-07-18] MEDS: MUPIROCIN 2% TOPICAL OINTMENT 22 GM NS SCH ×2 (10:07→21:47)
[2022-07-18] MEDS: DOXYCYCLINE HYCLATE 100 MG CAPSULE PO SCH ×2 (10:07→21:45)
[2022-07-18 11:25] VITALS: BP_SYST 101
[2022-07-18] MEDS: INSULIN LISPRO SLIDING SCALE 100 UNITS/ML, 3 ML VIAL (humaLOG) SUBCUT PRN ×3 (11:50→21:56)
[2022-07-18] MEDS: VANCOMYCIN HCL 750 MG in NS 250 ML IV SCH (12:36)
--- NOTE | 2022-07-18 13:44 | NUR ---
ROUNDS LATE ENTRY DUE TO PT CARE 0720- RECEIVED BEDSIDE REPORT FORM NIGHT RN. PATIENT IN BED AAOX4. DENIES PAIN AT THIS TIME. REPOSITIONED PATIENT FOR BREAKFAST, MAXIMUM ASSIST. C/O OF URGENCY IN VOIDING, KEPT CLEAN AND DRY. PLAN OF CARE DISCUSSED WITH PATIENT, WILL NEED FOLLOW UP 09- AT THE BEDSIDE. PREMEDICATED WITH NORCO PRIOR TO DRESSING CHANGE 1000- RIGHT QUADRANT INCISION, PARTIALLY DEHISCED, DRAINING MODERATE AMOUNT OF BROWNISH PURULENT DISCHARGE. IRRIGATED WOUND WITH NORMAL SALINE. PACKED WITH ALGINATE ROPE, COVERED WITH GAUZE AND ABD PAD. ABDOMINAL DINDER IN PLACE. PT TOLERATED PROCEDURE WELL 1030- PT AT THE BEDSIDE. PER PT, PATIENT REFUSED TREATMENT AT THIS TIME. EDUCATED PATIENT IMPORTANCE OF PHSICAL THERAPY. PATIENT STATED "NOT TODAY " 1330-PATIENT APPEARS COMFORTABLE IN BED. INSTRUCTED TO DO ROM ON ALL EXTREMITIES
[2022-07-18 15:09] VITALS: BP_SYST 107
--- NOTE | 2022-07-18 15:23 | NUR ---
RN MEDICALLY CLEARED PATIENT FOR PT TREATMENT, HOWEVER PATIENT REFUSED DESPITE MAX ENCOURAGEMENT. PATIENT REPORTED 9/10 PAIN TO ABDOMEN WITH MOVEMENT SO REFUSED OOB ACTIVITIES. OFFERED BED EXERCISES BUT PATIENT STILL REFUSED. PATIENT ASKED FOR PAIN MEDICATION BUT RN NOTED THAT PATIENT WAS ALREADY PREMEDICATED.
[2022-07-18] MEDS ORDERED: LIDOCAINE 1% 10 MG/ML, 20 ML MDV INJ ONE (16:00)
[2022-07-18 19:20] VITALS: BP_SYST 133
--- NOTE | 2022-07-18 19:20 | NUR ---
PM ASSESSMENT; - Patient is awake, alert, oriented X 4. Patient oriented to hospital room, call light, toileting, pain management and safety-teach back done. Patient informed that I (Karissa) will be his nurse and he is in room 120-A. IV site patent after flushed w/ ns, no s/s any infiltration noted. Discussed poc and all safety measure, pt verbalized understanding. Maintains contact isolation. Call light within reach, side rails x3, bed alarmed. Cont to monitor pt. Addendum: 07/18/22 at 2250 by Eliane Martin, MYNOR LOWE ADDITIONAL NOTES; STILL WAITING FOR DR. NOEL TO DO DORSAL SLIT AND THORNTON CATH PLACEMENT.
--- NOTE | 2022-07-18 19:56 | NUR ---
CLOSING LATE ENTRY DUE TO PATIENT CARE 1800- DR WOOD HERE TO SEE PATIENT AND INSPECTED WOUND. WAITING FOR DR NOEL TO DO BEDSIDE PROCEDURE PLAN TODAY OR TOMORROW. ALL REQUESTED EQUIPMENT AT THE BEDSIDE, CONSENT SIGNED BY PATIENT 1900- REPORT GIVEN TO LIZZY LOWE
[2022-07-19] MEDS: VANCOMYCIN HCL 750 MG in NS 250 ML IV SCH ×2 (01:06→12:42)
[2022-07-19 01:07] VITALS: BP_SYST 158
[2022-07-19] MEDS: HYDROcodone/ACETAMIN 5-325 MG TAB (NORCO/ VICODIN) PO PRN ×2 (01:07→13:54)
--- NOTE | 2022-07-19 01:07 | NUR ---
NOTES; PAIN MGMT -pt is c/o rt lateral abd pain,gave [place] po for pain mgmt. All safety measures in place. Call light w/in reach. Cont to monitor pt.
--- NOTE | 2022-07-19 04:02 | NUR ---
ROUNDS; -Pt is resting in bed. NO s/s any acute distress noted. Bed alarmed, side rails x3,call light w/in reach. Cont to monitor pt.
[2022-07-19] MEDS: INSULIN LISPRO SLIDING SCALE 100 UNITS/ML, 3 ML VIAL (humaLOG) SUBCUT PRN ×3 (05:55→17:44)
--- NOTE | 2022-07-19 06:30 | NUR ---
CLOSING NOTES; -Pt is resting in bed. NO s/s any acute distress noted. Pt's condition stable. Maintains contact isolation entire shift. Will endorse to next nurse to cont care.
--- NOTE | 2022-07-19 07:30 | NUR ---
MD Dr. odom came to see patient and perform doral slit procedure at bedside. patient tolerated well. Per Md, patient will bleed for the next few days, normal, no need to call MD. Mixon catheter not placed, MD stated patient does not require at this time.
[2022-07-19 08:00] VITALS: BP_SYST 93
--- NOTE | 2022-07-19 08:00 | NUR ---
AM NOTES PATIENT IS AOX4. NO SS OF DISTRESS NOTED. BREATHING IS EVEN AND NONLABORED, ON ROOM AIR. PATIENT'S VITAL SIGNS OBTAINED, DOCUMENTED. NO SOB. PATIENT DENIES PAIN. NO FACIAL GRIMACE NOTED. PATIENT LOST IV SITE. IV WAS PULLED OUT. PATIENT IS EATING BREAKFAST. BED IS LOCKED, ALARM ON, AND AT LOWEST POSITION. CALL LIGHT WITHIN REACH.
[2022-07-19] MEDS: METOPROLOL SUCCINATE 25 MG TAB.SR.24H (TOPROL XL) PO SCH (09:00)
[2022-07-19] MEDS: POLYETHYLENE GLYCOL 3350, 17 GM/ POWD.PACK PO SCH (09:00)
[2022-07-19] MEDS: LOSARTAN POTASSIUM 50 MG TABLET (COZAAR) PO SCH (09:00)
[2022-07-19] MEDS: MIDODRINE HCL 5 MG TABLET (PROAMATINE) PO SCH ×3 (10:05→20:31)
[2022-07-19] MEDS: DOXYCYCLINE HYCLATE 100 MG CAPSULE PO SCH ×2 (10:05→20:31)
[2022-07-19] MEDS: PANTOPRAZOLE SODIUM 40 MG TAB PO SCH (10:05)
[2022-07-19] MEDS: FINASTERIDE 5 MG TABLET (PROSCAR) PO SCH (10:05)
[2022-07-19] MEDS: ATORVASTATIN 20 MG TABLET PO SCH (10:05)
[2022-07-19] MEDS: TAMSULOSIN HCL 0.4 MG CAP PO SCH (10:05)
[2022-07-19] MEDS: DOCUSATE SODIUM 100 MG CAPSULE PO SCH (10:05)
[2022-07-19] MEDS: QUEtiapine FUMARATE 25 MG TABLET PO SCH (10:06)
[2022-07-19] MEDS: HEPARIN SODIUM,PORCINE 5,000 UNITS/ML VIAL SUBCUT SCH ×2 (10:07→20:33)
[2022-07-19 10:12] LABS: BASOPHILS % (AUTO) 0.1 % (0.0-2.0); HEMATOCRIT 26.9 % (36-54); HEMOGLOBIN 9.2 g/dL (14.0-18.0); LYMPHOCYTES # (AUTO) 0.9 K/uL (1.0-5.5); LYMPHOCYTES % (AUTO) 10.5 % (20.5-51.5); MEAN CORPUSCULAR HEMOGLOBIN 30 pg (27-31); MEAN CORPUSCULAR HGB CONC 34 % (32-36); MEAN CORPUSCULAR VOLUME 89 fL (79.0-98.0); MONOCYTES # (AUTO) 0.7 K/uL (0.0-1.0); MONOCYTES % (AUTO) 8.2 % (1.7-9.3); NEUTROPHILS # (AUTO) 7.1 K/uL (1.8-7.7); NEUTROPHILS % (AUTO) 81.2 % (40.0-70.0); PLATELET COUNT (AUTO) 267 K/uL (130-430); RED BLOOD CELL COUNT(AUTO) 3.04 MIL/uL (4.2-6.2); RED CELL DISTRIBUTION WIDTH 14.8 % (9.0-15.0); WHITE BLOOD COUNT (AUTO) 8.7 K/uL (4.8-10.8)
[2022-07-19] MEDS: MUPIROCIN 2% TOPICAL OINTMENT 22 GM NS SCH ×2 (10:15→20:32)
[2022-07-19 10:34] LABS: ANION GAP 9 (5-15); CALCIUM 7.9 mg/dL (8.4-11.0); CHLORIDE 100 mmol/L (98-107); CREATININE 1.44 mg/dL (0.55-1.30); GLUCOSE 190 mg/dL (70-99); UREA NITROGEN, BLOOD 17 mg/dL (8-21)
--- NOTE | 2022-07-19 10:55 | NUR ---
NOTES NEW IV INSERTED. 22G TO RFA. BLOOD RETURN, FLUSHES WELL. MORNING MEDS GIVEN. ALL SAFETY PRECAUTIONS IN PLACE AND CALL LIGHT WITHIN REACH. Addendum: 07/19/22 at 1650 by Aixa Orlando LVN NOTES NEW IV INSERTED. 22G TO RFA. BLOOD RETURN, FLUSHES WELL. MORNING MEDS GIVEN. WOUND CARE DONE. ALL SAFETY PRECAUTIONS IN PLACE AND CALL LIGHT WITHIN REACH.
[2022-07-19 11:31] VITALS: BP_SYST 91
--- NOTE | 2022-07-19 12:30 | NUR ---
NOTES PATIENT IS EATING LUNCH. NO SS OF DISTRESS NOTED. NO SOB NOTED. NO FACIAL [place] NOTED. ALL SAFETY PRECAUTIONS IN PLACE AND CALL LIGHT WITHIN REACH.
--- NOTE | 2022-07-19 12:45 | NUR ---
SPOKE WITH PHARMACY ([facility]) VANCO 750MG OKAY TO HANG WITHOUT TROUGH/LEVELS AND WITH CREATININE LEVEL 1.44 TODAY. STATES LABS WILL BE REDRAWN TOMORROW
[2022-07-19 15:13] VITALS: BP_SYST 97
--- NOTE | 2022-07-19 15:20 | NUR ---
NOTES PATIENT WORKING WITH PHYSICAL THERAPY.
--- NOTE | 2022-07-19 15:26 | NUR ---
PHYSICAL THERAPY CO-SIGN The Physical Therapy Progress Notes documented by Corporate Human Resources Manager have been reviewed. Reviewed/Co-Signed by: Lyle Paz Documentation Done by:CARLOS ENRIQUE LEE Addendum: 07/19/22 at 1526 by Lyle Paz PT Amended: Links added.
--- NOTE | 2022-07-19 16:46 | NUR ---
NOTES PATIENT IS RESTING, EYES CLOSED. APPEARS TO BE SLEEPING. BREATHING IS EVEN AND NONLABORED, ON ROOM AIR. NO SOB NOTED. PATIENT STABLE AT THIS TIME. ALL SAFETY PRECAUTIONS IN PLACE AND CALL LIGHT WITHIN REACH.
--- NOTE | 2022-07-19 19:24 | NUR ---
CLOSING NOTES PATIENT FINISHED EATING DINNER. NO SS OF DISTRESS NOTED. BREATHING IS EVEN AND NONLABORED, ON ROOM AIR. NO SOB NOTED. NO FACIAL GRIMACE NOTED. IV PATENT. DENIES PAIN. BED IS LOCKED, ALARM ACTIVE, AND AT LOWEST POSITION. CALL LIGHT WITHIN REACH. PATIENT IS STABLE AND ALL NEEDS MET. REPORT GIVEN TO MYNOR BALL.
[2022-07-19 19:25] VITALS: BP_SYST 92
--- NOTE | 2022-07-19 19:25 | NUR ---
PM ASSESSMENT; - Patient is awake, alert, oriented X 4. Patient oriented to hospital room, call light, toileting, pain management and safety-teach back done. Patient informed that I (Karissa) will be his nurse and he is in room 120-A. IV site patent after flushed w/ ns, no s/s any infiltration noted. Discussed poc and all safety measure, pt verbalized understanding. Maintains contact isolation. Call light within reach, side rails x3, bed alarmed. Cont to monitor pt.
[2022-07-20 00:30] VITALS: BP_SYST 91
--- NOTE | 2022-07-20 00:30 | NUR ---
ROUNDS; -Pt is incont of urine, gave sponge bath and provided perineal care. Now pt is cleaned and dry. VSS. Bed alarmed, side rails x3,call light w/in reach. Cont to monitor pt.
--- NOTE | 2022-07-20 02:40 | NUR ---
NOTES; PATIENT PULLED OUT IV SITE -INSERTED IV SITE OF RT F/A #22, ATTEMPTED X2, GOOD BLOOD RETURN, FLUSHED WELL W/ NS, SECURED WITH TAPE & KERLIX NOTED.
[2022-07-20] MEDS: VANCOMYCIN HCL 750 MG in NS 250 ML IV SCH ×2 (03:13→13:10)
[2022-07-20 07:24] LABS: ANION GAP 9 (5-15); C-REACTIVE PROTEIN QUANT 12.9 mg/dL (0-0.5); CALCIUM 7.6 mg/dL (8.4-11.0); CHLORIDE 102 mmol/L (98-107); CREATININE 1.43 mg/dL (0.55-1.30); GLUCOSE 153 mg/dL (70-99); UREA NITROGEN, BLOOD 19 mg/dL (8-21)
[2022-07-20 07:34] LABS: BASOPHILS % (AUTO) 0.2 % (0.0-2.0); EOSINOPHILS % (AUTO) 0.1 % (0.0-4.0); HEMATOCRIT 25.1 % (36-54); HEMOGLOBIN 8.5 g/dL (14.0-18.0); LYMPHOCYTES # (AUTO) 1.2 K/uL (1.0-5.5); LYMPHOCYTES % (AUTO) 21.9 % (20.5-51.5); MEAN CORPUSCULAR HEMOGLOBIN 30 pg (27-31); MEAN CORPUSCULAR HGB CONC 34 % (32-36); MEAN CORPUSCULAR VOLUME 89 fL (79.0-98.0); MONOCYTES # (AUTO) 0.6 K/uL (0.0-1.0); MONOCYTES % (AUTO) 10.5 % (1.7-9.3); NEUTROPHILS # (AUTO) 3.7 K/uL (1.8-7.7); NEUTROPHILS % (AUTO) 67.3 % (40.0-70.0); PLATELET COUNT (AUTO) 256 K/uL (130-430); RED BLOOD CELL COUNT(AUTO) 2.83 MIL/uL (4.2-6.2); RED CELL DISTRIBUTION WIDTH 14.5 % (9.0-15.0)
[2022-07-20 07:58] LABS: WHITE BLOOD COUNT (AUTO) 5.5 K/uL (4.8-10.8)
--- NOTE | 2022-07-20 08:00 | NUR ---
INITIAL NOTE: Received Patient lying in bed in position of comfort. No s/s of acute distress noted. A/O x 4. Patient states pain 3/10 but is tolerable, refuses pain meds at this time. Vital signs WNL. 22 gauge IV to right forearm, saline lock. Patient assisted to reposition in bed and prepare for breakfast. Clean and dry. White board updated with current information. Bed in low, locked position, bed alarm activated. Call light and personal items within reach.
[2022-07-20 08:16] VITALS: BP_SYST 121
[2022-07-20 08:48] LABS: ERYTHROCYTE SEDIMENTATION RATE 23 MM/HR (0-15)
[2022-07-20] MEDS: POLYETHYLENE GLYCOL 3350, 17 GM/ POWD.PACK PO SCH (09:00)
--- NOTE | 2022-07-20 09:35 | NUR ---
Administered Patient's AM medications as well as [place] 5-325mg for pain management (pain level 6/10). Assisted Patient up to restroom for BM and back to bed. Changed Patient's gown. Performed wound care to RUQ abdominal wound according to order. Visualized Penile incision. No signs of infection or bleeding noted. Bed in low, locked position with bed alarm activated. Call light and personal items within reach.
[2022-07-20] MEDS: DOCUSATE SODIUM 100 MG CAPSULE PO SCH (09:59)
[2022-07-20] MEDS: MIDODRINE HCL 5 MG TABLET (PROAMATINE) PO SCH ×3 (09:59→20:32)
[2022-07-20] MEDS: FINASTERIDE 5 MG TABLET (PROSCAR) PO SCH (09:59)
[2022-07-20] MEDS: HYDROcodone/ACETAMIN 5-325 MG TAB (NORCO/ VICODIN) PO PRN (09:59)
[2022-07-20] MEDS: LOSARTAN POTASSIUM 50 MG TABLET (COZAAR) PO SCH (10:00)
[2022-07-20] MEDS: DOXYCYCLINE HYCLATE 100 MG CAPSULE PO SCH ×2 (10:00→20:31)
[2022-07-20] MEDS: METOPROLOL SUCCINATE 25 MG TAB.SR.24H (TOPROL XL) PO SCH (10:00)
[2022-07-20] MEDS: ATORVASTATIN 20 MG TABLET PO SCH (10:01)
[2022-07-20] MEDS: HEPARIN SODIUM,PORCINE 5,000 UNITS/ML VIAL SUBCUT SCH ×2 (10:11→20:33)
[2022-07-20] MEDS: MUPIROCIN 2% TOPICAL OINTMENT 22 GM NS SCH ×2 (10:12→20:41)
[2022-07-20] MEDS: PANTOPRAZOLE SODIUM 40 MG TAB PO SCH (10:14)
[2022-07-20] MEDS: QUEtiapine FUMARATE 25 MG TABLET PO SCH (10:14)
[2022-07-20] MEDS: TAMSULOSIN HCL 0.4 MG CAP PO SCH (10:14)
--- NOTE | 2022-07-20 11:30 | NUR ---
ROUNDS Patient in bed in position of comfort. No s/s of acute distress noted. No c/o of pain. Fingerstick glucose check done, insulin indicated and administered according to order. Patient repositioned, kept clean and dry. Bed in low, locked position. Alarm activated, side rails x3. Call light and personal items within reach.
[2022-07-20 11:35] VITALS: BP_SYST 102
[2022-07-20] MEDS: INSULIN LISPRO SLIDING SCALE 100 UNITS/ML, 3 ML VIAL (humaLOG) SUBCUT PRN ×2 (13:14→20:47)
--- NOTE | 2022-07-20 14:00 | NUR ---
ROUNDS Patient lying in bed in position of comfort. No s/s of acute distress noted. No c/o of pain. Patient repositioned, kept clean and dry. Assisted to use urinal, output 225 mL. Kept clean and dry. Bed in low, locked position. Alarm activated, side rails x3. Call light and personal items within reach.
--- NOTE | 2022-07-20 14:05 | NUR ---
ROUNDS Patient lying in bed, eyes closed. Denies pain at this time. No s/s of acute distress noted. Patient stated he wants to rest and needs to be protective signal superintendent order to nap. Patient was brought two warm blankets & assisted into position of comfort. Bed in low, locked position. Alarm activated, side rails x3. Call light and personal items within reach.
--- NOTE | 2022-07-20 16:00 | NUR ---
ROUNDS Patient in bed, resting in position of comfort. No s/s of acute distress noted. No c/o pain at this time. Patient states all needs are met. Call light and personal items within reach. Bed in low, locked position. Alarm activated, side rails x3.
[2022-07-20 17:01] VITALS: BP_SYST 114
--- NOTE | 2022-07-20 18:16 | NUR ---
CONTACT SON FOR SNF PLACEMENT PATIENT'S STATES TO CONTACT SON GARETT MEI REGARDING SNF PLACEMENT AT . WOULD PREFER SNF LOCATIONS AROUND [facility].
--- NOTE | 2022-07-20 18:37 | NUR ---
CLOSING NOTES PATIENT IS EATING DINNER. NO SS OF DISTRESS NOTED. BREATHING IS EVEN AND NONLABORED, ON ROOM AIR. DENIES SEVERE PAIN. NO FACIAL GRIMACE NOTED. IV PATENT. NO SOB NOTED. PATIENT IS STABLE. ALL NEEDS MET. BED IS LOCKED, ALARM ON, AND AT LOWEST POSITION. CALL LIGHT WITHIN REACH.
[2022-07-20 20:00] VITALS: BP_SYST 108
[2022-07-21] MEDS: VANCOMYCIN HCL 750 MG in NS 250 ML IV SCH ×2 (01:14→12:21)
[2022-07-21 04:38] VITALS: BP_SYST 157
[2022-07-21 07:20] LABS: BASOPHILS % (AUTO) 0.3 % (0.0-2.0); EOSINOPHILS % (AUTO) 0.2 % (0.0-4.0); HEMATOCRIT 26.2 % (36-54); LYMPHOCYTES # (AUTO) 1.1 K/uL (1.0-5.5); MEAN CORPUSCULAR HEMOGLOBIN 30 pg (27-31); MEAN CORPUSCULAR HGB CONC 34 % (32-36); MEAN CORPUSCULAR VOLUME 88 fL (79.0-98.0); MONOCYTES # (AUTO) 0.4 K/uL (0.0-1.0); MONOCYTES % (AUTO) 10.3 % (1.7-9.3); NEUTROPHILS # (AUTO) 2.6 K/uL (1.8-7.7); NEUTROPHILS % (AUTO) 63.2 % (40.0-70.0); PLATELET COUNT (AUTO) 264 K/uL (130-430); RED BLOOD CELL COUNT(AUTO) 2.97 MIL/uL (4.2-6.2); RED CELL DISTRIBUTION WIDTH 14.7 % (9.0-15.0); WHITE BLOOD COUNT (AUTO) 4.1 K/uL (4.8-10.8)
[2022-07-21 07:30] VITALS: BP_SYST 115
[2022-07-21 08:13] LABS: ALANINE AMINOTRANSFERASE 52 U/L (12-78); ALBUMIN 1.9 g/dL (3.4-4.8); ANION GAP 8 (5-15); ASPARTATE AMINOTRANSFERASE 31 U/L (10-37); C-REACTIVE PROTEIN QUANT 6.4 mg/dL (0-0.5); CALCIUM 7.9 mg/dL (8.4-11.0); CHLORIDE 104 mmol/L (98-107); CREATININE 1.48 mg/dL (0.55-1.30); GLUCOSE 143 mg/dL (70-99); PHOSPHORUS 3.1 mg/dL (2.7-4.5); TOTAL BILIRUBIN 0.5 mg/dL (0.0-1.0); UREA NITROGEN, BLOOD 19 mg/dL (8-21)
[2022-07-21 09:26] LABS: ERYTHROCYTE SEDIMENTATION RATE 33 MM/HR (0-15)
[2022-07-21] MEDS: DOXYCYCLINE HYCLATE 100 MG CAPSULE PO SCH ×2 (09:52→22:13)
[2022-07-21] MEDS: TAMSULOSIN HCL 0.4 MG CAP PO SCH (09:52)
[2022-07-21] MEDS: ATORVASTATIN 20 MG TABLET PO SCH (09:52)
[2022-07-21] MEDS: PANTOPRAZOLE SODIUM 40 MG TAB PO SCH (09:52)
[2022-07-21] MEDS: METOPROLOL SUCCINATE 25 MG TAB.SR.24H (TOPROL XL) PO SCH (09:52)
[2022-07-21] MEDS: POLYETHYLENE GLYCOL 3350, 17 GM/ POWD.PACK PO SCH (09:53)
[2022-07-21] MEDS: FINASTERIDE 5 MG TABLET (PROSCAR) PO SCH (09:53)
[2022-07-21] MEDS: DOCUSATE SODIUM 100 MG CAPSULE PO SCH (09:53)
[2022-07-21] MEDS: QUEtiapine FUMARATE 25 MG TABLET PO SCH (09:53)
[2022-07-21] MEDS: LOSARTAN POTASSIUM 50 MG TABLET (COZAAR) PO SCH (09:53)
[2022-07-21] MEDS: MIDODRINE HCL 5 MG TABLET (PROAMATINE) PO SCH ×3 (09:53→22:13)
[2022-07-21] MEDS: MUPIROCIN 2% TOPICAL OINTMENT 22 GM NS SCH ×2 (09:54→22:14)
[2022-07-21] MEDS: HEPARIN SODIUM,PORCINE 5,000 UNITS/ML VIAL SUBCUT SCH ×2 (09:56→22:15)
[2022-07-21] MEDS: HYDROcodone/ACETAMIN 5-325 MG TAB (NORCO/ VICODIN) PO PRN (10:10)
[2022-07-21 11:22] VITALS: BP_SYST 114
--- NOTE | 2022-07-21 15:29 | NUR ---
PHYSICAL THERAPY CO-SIGN The Physical Therapy Progress Notes documented by Film Cutter have been reviewed. Reviewed/Co-Signed by: Lyle Paz Documentation Done by:CARLOS ENRIQUE LEE Addendum: 07/21/22 at 1530 by Lyle Paz PT Amended: Links added.
[2022-07-21 16:47] VITALS: BP_SYST 127
[2022-07-21] MEDS: INSULIN LISPRO SLIDING SCALE 100 UNITS/ML, 3 ML VIAL (humaLOG) SUBCUT PRN (17:45)
[2022-07-22 01:03] VITALS: BP_SYST 129
[2022-07-22] MEDS: VANCOMYCIN HCL 750 MG in NS 250 ML IV SCH ×2 (01:05→15:30)
[2022-07-22 04:21] VITALS: BP_SYST 131
[2022-07-22 08:00] VITALS: BP_SYST 130
[2022-07-22] MEDS: METOPROLOL SUCCINATE 25 MG TAB.SR.24H (TOPROL XL) PO SCH (09:00)
[2022-07-22] MEDS: DOXYCYCLINE HYCLATE 100 MG CAPSULE PO SCH ×2 (09:00→20:54)
[2022-07-22] MEDS: QUEtiapine FUMARATE 25 MG TABLET PO SCH (09:00)
[2022-07-22] MEDS: PANTOPRAZOLE SODIUM 40 MG TAB PO SCH (09:00)
[2022-07-22] MEDS: MIDODRINE HCL 5 MG TABLET (PROAMATINE) PO SCH ×3 (09:00→21:00)
[2022-07-22] MEDS: MUPIROCIN 2% TOPICAL OINTMENT 22 GM NS SCH (09:00)
[2022-07-22] MEDS: ATORVASTATIN 20 MG TABLET PO SCH (09:00)
[2022-07-22] MEDS: POLYETHYLENE GLYCOL 3350, 17 GM/ POWD.PACK PO SCH (09:00)
[2022-07-22] MEDS: TAMSULOSIN HCL 0.4 MG CAP PO SCH (09:00)
[2022-07-22] MEDS: HEPARIN SODIUM,PORCINE 5,000 UNITS/ML VIAL SUBCUT SCH ×2 (09:00→21:01)
[2022-07-22] MEDS: LOSARTAN POTASSIUM 50 MG TABLET (COZAAR) PO SCH (09:00)
[2022-07-22] MEDS: DOCUSATE SODIUM 100 MG CAPSULE PO SCH (09:00)
[2022-07-22] MEDS: FINASTERIDE 5 MG TABLET (PROSCAR) PO SCH (09:00)
[2022-07-22 10:40] VITALS: BP_SYST 113
[2022-07-22] MEDS: INSULIN LISPRO SLIDING SCALE 100 UNITS/ML, 3 ML VIAL (humaLOG) SUBCUT PRN ×2 (12:22→20:58)
--- NOTE | 2022-07-22 15:24 | NUR ---
PHYSICAL THERAPY CO-SIGN The Physical Therapy Progress Notes documented by Warrant Clerk have been reviewed. Reviewed/Co-Signed by: Chava Handley Documentation Done by:CARLOS ENRIQUE LEE Addendum: 07/22/22 at 1524 by Chava Handley PT Amended: Links added.
[2022-07-22] MEDS ORDERED: DOXY100C5 PO (16:04)
[2022-07-22 16:33] VITALS: BP_SYST 120
[2022-07-22 19:50] VITALS: BP_SYST 140
--- NOTE | 2022-07-22 20:00 | NUR ---
RECEIVED PT IN BED, AOX3, EVEN AND UNLABORED BREATHING, DENIED ANY ISSUE ATT, ABD INCISION DSG SOAKED WITH SEROSANGUINEOUS DRAINAGE , ABD BINDER IN PLACE, WILL CONTINUE WITH POC
--- NOTE | 2022-07-22 21:20 | NUR ---
MAKING PLANS TO BE DISCHARGED SOON . PATIENT GOING BACK HOME WHERE FAMILY WILL CARE FOR PATIENT BRENDON IS INPATIENT CODER AND HAS ACCESS TO RESOURCES. PATIENT WEAK NOT WANTING TO DUE PT. MUST BE PUSHED TO GET OUT OF BED AND USE WALKER PER PT. FINALLY DID GET OUT OF BED LATER PART OF SHIFT FOR EXERCISING. NO PRN'S FEEDING SELF WHEN SET UP. WORKING ON DISCHARGE PER PATIENT'S INPATIENT CODER.
[2022-07-23] VITALS: BP_SYST 128
[2022-07-23] MEDS: VANCOMYCIN HCL 750 MG in NS 250 ML IV SCH ×2 (00:37→12:12)
--- NOTE | 2022-07-23 06:50 | NUR ---
PT IN BED, AOX3, EVEN AND UNLABORED BREATHING, DENIED SOB, CP OR PAIN ATT, ABD INCISION DSG CHANGED, ABD BINDER IN PLACE, SALINE LOCK TO RFA W/O INFILTRATION, PT ON BEDREST, VOIDING MODERATE AMOUNT OF YELLOW URINE VIA URINAL AND ALSO INCONTINENT, BS CHECKED AND COVERED WITH INSULIN PER SLIDING SCALE, WILL ENDORSE TO INCOMING RN
[2022-07-23 07:48] VITALS: BP_SYST 113
[2022-07-23] MEDS: DOCUSATE SODIUM 100 MG CAPSULE PO SCH (09:00)
[2022-07-23] MEDS: POLYETHYLENE GLYCOL 3350, 17 GM/ POWD.PACK PO SCH (09:00)
[2022-07-23] MEDS: TAMSULOSIN HCL 0.4 MG CAP PO SCH (09:37)
[2022-07-23] MEDS: DOXYCYCLINE HYCLATE 100 MG CAPSULE PO SCH (09:38)
[2022-07-23] MEDS: QUEtiapine FUMARATE 25 MG TABLET PO SCH (09:38)
[2022-07-23] MEDS: FINASTERIDE 5 MG TABLET (PROSCAR) PO SCH (09:38)
[2022-07-23] MEDS: ATORVASTATIN 20 MG TABLET PO SCH (09:38)
[2022-07-23] MEDS: LOSARTAN POTASSIUM 50 MG TABLET (COZAAR) PO SCH (09:38)
[2022-07-23] MEDS: PANTOPRAZOLE SODIUM 40 MG TAB PO SCH (09:38)
[2022-07-23] MEDS: MIDODRINE HCL 5 MG TABLET (PROAMATINE) PO SCH (09:38)
[2022-07-23] MEDS: METOPROLOL SUCCINATE 25 MG TAB.SR.24H (TOPROL XL) PO SCH (09:39)
[2022-07-23] MEDS: HEPARIN SODIUM,PORCINE 5,000 UNITS/ML VIAL SUBCUT SCH (09:40)
--- NOTE | 2022-07-23 10:54 | NUR ---
The is at bedside and stated they are no longer agreeable to SNF and want to take pt home with home health, PT. I have left a message with the [employer] CMFelicia, to call for updates and new order has been placed. PT reports pt is able to ambulate 15ft.
[2022-07-23 11:36] VITALS: BP_SYST 113
--- NOTE | 2022-07-23 11:53 | NUR ---
Pt will be discharged home with home health for PT and wound care and on PO abx. Dr. Fernández paged to inform and to see when he would like the pt to follow up post op.
[2022-07-23] MEDS: INSULIN LISPRO SLIDING SCALE 100 UNITS/ML, 3 ML VIAL (humaLOG) SUBCUT PRN (12:11)
[2022-07-23 12:50] VITALS: BP_SYST 113
--- NOTE | 2022-07-23 13:54 | NUR ---
D/C Patient Pt's and given medication reconciliation form and D/C instructions. Exit Care provided. Pt's and son verbalized understanding. MD discussed with patient the results and treatment provided. Ambulatory with walker for discharge to home. Patient in stable condition, ID band removed. IV catheter removed, intact and dressing applied, no active bleeding. The has already picked up new rx. Patient educated on pain management. All belongings sent with patient. Home health for wound care, PT and FWW being arranged. The wound care completed on police shift commander and instructions provided to family. Pt received 200 of the 250ml dose of vancomycin prior to discharge. Pt being taken to the front lobby by W/C to meet son in the front.
--- NOTE | 2022-07-23 15:52 | NUR ---
PHYSICAL THERAPY CO-SIGN The Physical Therapy Progress Notes documented by Engineer/Conductor have been reviewed. Reviewed/Co-Signed by: Chava Handley Documentation Done by:CARLOS ENRIQUE LEE Addendum: 07/23/22 at 1552 by Chava Handley PT Amended: Links added.
--- NOTE | 2022-07-28 09:36 | NUR ---
Received email confirmation from Anish Galarza, or [employer], advising that he has received the referral and as attempted to make contact with the family. At this time, a message was left requesting a returned phone call to him. Per Anish, there is no follow up needed from director of social services at this time. Anish Galarza, of [employer]: [phone]; [email or web address]
== END 2022-07-23 14:05 | disposition home health service (06) | DRG 871 ==
LOC: SED 18:37 → STU 23:08 → SMU 07-15 23:53
PROVIDERS: ADMIT Internal Medicine; ATTEND Internal Medicine
PROC: 30233N1 Transfusion of Nonautologous Red Blood Cells into Peripheral Vein, Percutaneous Approach (ICD-10-PCS; principal; 2022-07-14)
DX: A41.9 Sepsis, unspecified organism (principal); N17.0 Acute kidney failure with tubular necrosis; L02.211 Cutaneous abscess of abdominal wall; E87.1 Hypo-osmolality and hyponatremia; N39.0 Urinary tract infection, site not specified; L03.311 Cellulitis of abdominal wall; T81.41XD Infection following a procedure, superficial incisional surgical site, subsequent encounter; I95.1 Orthostatic hypotension; E11.22 Type 2 diabetes mellitus with diabetic chronic kidney disease; E11.21 Type 2 diabetes mellitus with diabetic nephropathy; E11.65 Type 2 diabetes mellitus with hyperglycemia; E78.5 Hyperlipidemia, unspecified; E83.51 Hypocalcemia; N18.9 Chronic kidney disease, unspecified; I12.9 Hypertensive chronic kidney disease with stage 1 through stage 4 chronic kidney disease, or unspecified chronic kidney disease; N47.1 Phimosis; Z20.822 Contact with and (suspected) exposure to COVID-19; D63.1 Anemia in chronic kidney disease; R14.0 Abdominal distension (gaseous); B95.5 Unspecified streptococcus as the cause of diseases classified elsewhere; Z90.49 Acquired absence of other specified parts of digestive tract
CPT/HCPCS: 36415; 36600; 70450-TC; 71045; 71275; 76376; 80048; 80053; 80202; 82272; 82803-TC; 83037; 83051; 83735; 83880; 84100; 84484; 85025; 85379; 85610-TC; 85651-TC; 86140; 86886; 86900; 86901; 86920; 87070-TC; 87081; 93005; 93306; 93880; 93970; 96360; 97110-GP; 97116-GP; 97163-GP; 97530-GP; 99285; G0378; J0744; J1644; J2001; J2405; J3480; J7050; J7060; P9021; Q9967